=== PATIENT | male | born 1985 | race African-American/Black ===

== ENCOUNTER 2018-07-30 20:55 | Emergency (ER) | payer MEDICAID, OTHER ==
[~2018-07-30] VITALS: Ht 170.2 cm; Wt 95.3 kg
--- NOTE | 2018-07-30 21:24 | Diagnostic Imaging Report ---
INDICATION: Shortness of breath PA and lateral chest obtained at 8:56 p.m. Heart and mediastinal silhouette are normal in appearance. There are patchy bibasilar infiltrates suspicious for pneumonia. There is no pneumothorax or pleural fluid. IMPRESSION: Patchy bibasilar infiltrates are present which are suspicious for pneumonia. Followup is recommended. Dictated by: Dictated on workstation # [id number]
[2018-07-30] MEDS ORDERED: KETOROLAC 60 MG/2 ML VIAL IM ONE (21:30)
[2018-07-30] MEDS ORDERED: AZITHROMYCIN 250 MG TAB (ZITHROMAX) PO STA (22:39)
[2018-07-30] MEDS ORDERED: AZIT250T12 PO (22:44)
[2018-07-30] MEDS ORDERED: IBUP-1780 PO (22:44)
--- NOTE | 2018-07-30 22:44 | ED Cough/URI ---
General Chief Complaint: Chest Wall Stated Complaint: SOB, RIB PAIN Nursing Triage Note: Patient states that he has pain in his chest that worsens with deep breathing. He describes the pain as cramping in nature around his sternum with radiation to his bilateral ribs/sides. Patient states that he did help a friend move today and then walked around town. Patient states he is short of breath because when he breathes normally, his chest hurts. Patient rates his pain at a 9. Sepsis Screen: No Definite Risk Source: patient History of Present Illness Date Seen by Provider: July 30, 2018 Time Seen by Provider: 22:21 Initial Comments 32 yo M presenting with cough and chest tightness that started tonight. He has had congestion with cough. he reports no fever or chills. He is a tobacco user. He states that he has been having some congestion since coming down to [facility]. He had been trying some Claritin to help with that. He had helped a friend move today and was walking around town some as well. Since then he has been having a tightness and cramping pain in his chest when he coughs or tries to take a deep breath. When he takes a deep breath it feels worse. Also if he tries to take a deep breath the feels more short of breath. He was feeling dizzy initially at home as well. He feels better now sitting emergency department. He states that he did not really want to come to the emergency department but his family and friends talked him into coming. Timing/Duration: this evening Severity/Quality: dry cough Prior Episodes/Possible Cause: no prior episodes Modifying Factors: Worse With Activity, Worse With Coughing Associated Symptoms: chest pain/soreness, cough, dizziness (just before coming to ED but better since getting here), nasal congestion, nasal drainage, shortness of breath Allergies and Home Medications Allergies Coded Allergies: aripiprazole (Verified Allergy, Unknown, 07/30/18) Home Medications Azithromycin 250 Mg Tablet, 250 MG PO DAILY Prescribed by: YAYA NEWELL on 07/30/182243 Ibuprofen 800 Mg Tablet, 800 MG PO Q8H PRN for PAIN Prescribed by: YAYA NEWELL on 07/30/182243 Patient Home Medication List Home Medication List Reviewed: Yes Review of Systems Review of Systems Constitutional: see HPI; No chills, No fever; malaise EENTM: see HPI Respiratory: see HPI Cardiovascular: see HPI Gastrointestinal: no symptoms reported; No nausea, No vomiting Genitourinary: no symptoms reported Musculoskeletal: no symptoms reported Skin: no symptoms reported Psychiatric/Neurological: No Symptoms Reported Past Sbyjmlm-Flmahm-Sgqimh Hx Past Med/Social Hx: Reviewed Nursing Past Med/Soc Hx Patient Social History Alcohol Use: Denies Use Recreational Drug Use: No Smoking Status: Current Everyday Smoker Type Used: Cigarettes 2nd Hand Smoke Exposure: Yes Recent Foreign Travel: No Contact w/Someone Who Travel: No Recent Infectious Disease Expo: No Recent Hopitalizations: No Physical Abuse: No Sexual Abuse: No Mistreated: No Fear: No Seasonal Allergies Seasonal Allergies: No Past Medical History Surgeries: Yes (Tongue Clipped) Orthopedic, Tonsillectomy Respiratory: No Cardiac: No Neurological: No Genitourinary: No Gastrointestinal: No Musculoskeletal: No Endocrine: No HEENT: No Cancer: No Psychosocial: Yes (Schizoaffective Disorder) Bipolar Blood Disorders: No Physical Exam Vital Signs - First Documented 07/30/18 21:00 Temp 98.4 Pulse 118 Resp 24 B/P (MAP) 119/84 (96) Pulse Ox 97 O2 Delivery Room Air Capillary Refill : Less Than 3 Seconds Height: 5'7.00" Weight: 210lbs. 0oz. 95.178000cd; BMI Method:Stated General Appearance: WD/WN, no apparent distress HEENT: PERRL/EOMI, pharynx normal; No photophobia, No pharyngeal erythema, No tonsillar exudate Neck: non-tender, full range of motion, supple, normal inspection Respiratory: no respiratory distress, no accessory muscle use, decreased breath sounds (in bilateral bases); No crackles, No rales, No rhonchi, No stridor, No wheezing; other (tender to palpation of the lower chest and ribs) Cardiovascular: normal peripheral pulses, regular rate, rhythm, no edema; No JVD Extremities: normal range of motion, non-tender, no calf tenderness Neurologic/Psychiatric: alert, normal mood/affect, oriented x 3 Skin: normal color, warm/dry Progress/Results/Core Measures Suspected Sepsis Recent Fever Within 48 Hours: No Infection Criteria Present: None New/Unexplained Altered Menta: No Sepsis Screen: No Definite Risk SIRS Temperature:98.4 Pulse: 118 Respiratory Rate: 24 Blood Pressure 119 /84 Mean: 96 Results/Orders My Orders Orders - YAYA NEWELL MD Cxr 2v With Apical Lordotic (07/30/18 21:09) Ketorolac Injection (Toradol Injection) (07/30/18 21:30) Azithromycin Tablet (Zithromax Tablet) (07/30/18 22:39) Guaifenesin Tablet (Mucinex Tablet) (07/30/18 22:45) Medications Given in ED Current Medications Medications Dose Ordered Sig/Swathi Route Start Time Stop Time Status Last Admin Dose Admin Ketorolac Tromethamine 60 mg ONCE ONCE IM 07/30/18 21:30 07/30/18 21:31 DC 07/30/18 21:29 60 MG Vital Signs/I&O 07/30/18 07/30/18 21:00 22:48 Temp 98.4 100.0 Pulse 118 97 Resp 24 19 B/P (MAP) 119/84 (96) 137/85 (102) Pulse Ox 97 96 O2 Delivery Room Air Room Air Capillary Refill : Less Than 3 Seconds Blood Pressure Mean: 96 Progress Note #1: Progress Note Obtain CXR and try a Toradol shot for pain while I was completing a procedure on another patient. Progress Note #2: Progress Note Pt reports the Toradol shot had not helped that much. The CXR was read out by Radiology as having bilateral basilar infiltrates. Will treat for early infection, especially with him being a smoker and more prone to infection due to this. Encouraged and counseled to quit smoking. Start on Zithromax here and advised to increase fluid intake and use Mucinex to help with cough and congestion. Ibuprofen to help with pain Diagnostic Imaging Diagonstic Imaging: Xray Plain Films/CT/US/NM/MRI: chest Comments NAME: MICHAEL BRAY [facility] REC#: [id number] PT STATUS: REG ER : 1985 PHYSICIAN: YAYA NEWELL MD ADMIT DATE: 07/30/18/ER FS Signed Date of Exam:07/30/18 CXR 2V WITH APICAL LORDOTIC INDICATION: Shortness of breath PA and lateral chest obtained at 8:56 p.m. Heart and mediastinal silhouette are normal in appearance. There are patchy bibasilar infiltrates suspicious for pneumonia. There is no pneumothorax or pleural fluid. IMPRESSION: Patchy bibasilar infiltrates are present which are suspicious for pneumonia. Followup is recommended. Dictated by: Dictated on workstation # [id number] Dict: 07/30/[id number] Trans: 07/30/182223 [place] [id number] Interpreted by: THEO ARMANDO MD Electronically signed by: THEO ARMANDO MD 07/30/182223 Reviewed: Reviewed by Me (and radiologist reading) Departure Impression Primary Impression: Upper respiratory infection with cough and congestion Additional Impression: Chest wall muscle strain Qualified Codes: S29.011A - Strain of muscle and tendon of front wall of thorax, initial encounter Disposition: HOME, SELF-CARE Condition: Stable Departure-Patient Inst. Decision time for Depature: 22:42 Referrals: NO,LOCAL PHYSICIAN (PCP) Primary Care Physician Patient Instructions: SMOKING CESSATION, Muscle Strain (DC), Bacterial Upper Respiratory Infection, Adult (DC) Add. Discharge Instructions: Stop smoking. Take antibiotics until they are gone. Check with clinic for continued problems/concerns. Use Mucinex to help with cough and congestion. Make sure to drink plenty of water along with that so it will work to thin out any congestion and phlegm All discharge instructions reviewed with patient and/or family. Voiced understanding. Scripts Ibuprofen (Ibuprofen) 800 Mg Tablet 800 MG PO Q8H PRN for PAIN for 10 Days, #30 TAB 0 Refills Prov: YAYA NEWELL MD 07/30/18 Azithromycin (Azithromycin) 250 Mg Tablet 250 MG PO DAILY for 4 Days, #4 TAB 0 Refills Prov: YAYA NEWELL MD 07/30/18 YAYA NEWELL MD July 30, 2018 22:44
[2018-07-30] MEDS ORDERED: guaiFENesin (MUCINEX) 600 MG TAB PO ONE (22:45)
[2018-07-30 22:48] VITALS: BP 137/85
== END 2018-07-30 22:48 | disposition home or self-care (01) ==
LOC: ER FS 20:57
DX: S29.011A Strain of muscle and tendon of front wall of thorax, initial encounter (principal); J06.9 Acute upper respiratory infection, unspecified; F20.9 Schizophrenia, unspecified; F31.9 Bipolar disorder, unspecified; F17.210 Nicotine dependence, cigarettes, uncomplicated; Z88.8 Allergy status to other drugs, medicaments and biological substances; Z90.89 Acquired absence of other organs; X58.XXXA Exposure to other specified factors, initial encounter
CPT/HCPCS: 71047; 96372

== ENCOUNTER 2018-08-01 03:07 | Emergency (ER) | payer MEDICAID ==
[~2018-08-01] VITALS: Ht 170.2 cm; Wt 92.5 kg
[~2018-08-01 03:07] MED LIST: AZIT250T12 PO; IBUP-1780 PO
[2018-08-01] MEDS ORDERED: NS IV 1000 ML 1,000 ML IV SCH (03:15)
[2018-08-01] MEDS ORDERED: DEXAMETHASONE 4 MG/ML SDV (DECADRON) IV STA (03:15)
[2018-08-01] MEDS ORDERED: LORazepam INJ 2 MG/ML (ATIVAN) VIAL IVP STA (03:20)
--- NOTE | 2018-08-01 03:30 | ED Dyspnea ---
General Stated Complaint: CHEST PAIN Source of Information: Patient Exam Limitations: No Limitations History of Present Illness Date Seen by Provider: August 01, 2018 Time Seen by Provider: 03:08 Initial Comments 32 yo male patient presents yet again to the emergency department with similar complaints as yesterday. He was seen by me last night for the same thing. He states that he did not go throughout the day to fill any prescriptions because he didn't have any money. He also did not go to [facility] or any clinic to try and get help with filling any prescriptions. He reports that he felt fine throughout the day but overnight had the pain return. His family made him come to the emergency department to be reevaluated. He has pleuritic pain with breathing. He denies any able to bring up anything with coughing. His pain is worse with deep breaths and with coughing. He has not taking anything tonight for his symptoms. He denies any change in the symptoms tonight. They feel the same as yesterday. Allergies and Home Medications Allergies Coded Allergies: aripiprazole (Verified Allergy, Unknown, 07/30/18) Home Medications Azithromycin 250 Mg Tablet, 250 MG PO DAILY Prescribed by: YAYA NEWELL on 07/30/182243 Ibuprofen 800 Mg Tablet, 800 MG PO Q8H PRN for PAIN Prescribed by: YAYA NEWELL on 07/30/182243 Patient Home Medication List Home Medication List Reviewed: Yes Review of Systems Review of Systems Constitutional: No chills, No fever; malaise EENTM: nose congestion (yesterday); No throat pain, No throat swelling Respiratory: cough, dyspnea on exertion (in the evenings last 2 days); No hemoptysis, No phlegm; short of breath; No stridor Cardiovascular: chest pain (with deep breaths) Gastrointestinal: no symptoms reported Genitourinary: no symptoms reported Musculoskeletal: no symptoms reported Skin: no symptoms reported Psychiatric/Neurological: Anxiety Endocrine: No Symptoms Reported Past Wxfjvym-Jsllvu-Rzzkyv Hx Past Med/Social Hx: Reviewed Nursing Past Med/Soc Hx Patient Social History Type Used: Cigarettes 2nd Hand Smoke Exposure: Yes Recent Foreign Travel: No Contact w/Someone Who Travel: No Recent Hopitalizations: No Seasonal Allergies Seasonal Allergies: No Past Medical History Surgeries: Yes (Tongue Clipped) Orthopedic, Tonsillectomy Respiratory: No Cardiac: No Neurological: No Genitourinary: No Gastrointestinal: No Musculoskeletal: No Endocrine: No HEENT: No Cancer: No Psychosocial: Yes (Schizoaffective Disorder) Bipolar Blood Disorders: No Physical Exam Vital Signs Vital Signs - First Documented Capillary Refill : Height, Weight, BMI Height: 5'7.00" Weight: 210lbs. 0oz. 95.741674xo; BMI Method:Stated General Appearance: WD/WN, Anxious HEENT: PERRL/EOMI, Pharynx Normal Neck: Full Range of Motion, Normal Inspection, Non Tender, Supple Respiratory: Chest Non Tender, Lungs Clear, Normal Breath Sounds, No Accessory Muscle Use, No Respiratory Distress Cardiovascular: Regular Rate, Rhythm, No Edema, Normal Peripheral Pulses Gastrointestinal: Normal Bowel Sounds, No Pulsatile Mass, Non Tender, Soft Rectal: Deferred Extremity: Normal Capillary Refill, Normal Inspection, Normal Range of Motion, Non Tender, No Calf Tenderness Neurologic/Psychiatric: Alert, Oriented x3 Skin: Normal Color, Warm/Dry Progress/Results/Core Measures Results/Orders Lab Results Laboratory Tests Test 08/01/18 03:21 Range/Units White Blood Count 8.1 4.3-11.0 10^3/uL Red Blood Count 4.99 4.35-5.85 10^6/uL Hemoglobin 14.6 13.3-17.7 G/DL Hematocrit 43 40-54 % Mean Corpuscular Volume 86 80-99 FL Mean Corpuscular Hemoglobin 29 25-34 PG Mean Corpuscular Hemoglobin Concent 34 32-36 G/DL Red Cell Distribution Width 13.5 10.0-14.5 % Platelet Count 202 130-400 10^3/uL Mean Platelet Volume 9.3 7.4-10.4 FL Neutrophils (%) (Auto) 59 42-75 % Lymphocytes (%) (Auto) 31 12-44 % Monocytes (%) (Auto) 7 0-12 % Eosinophils (%) (Auto) 2 0-10 % Basophils (%) (Auto) 0 0-10 % Neutrophils # (Auto) 4.8 1.8-7.8 X 10^3 Lymphocytes # (Auto) 2.5 1.0-4.0 X 10^3 Monocytes # (Auto) 0.6 0.0-1.0 X 10^3 Eosinophils # (Auto) 0.2 0.0-0.3 10^3/uL Basophils # (Auto) 0.0 0.0-0.1 10^3/uL Prothrombin Time 13.9 12.2-14.7 SEC INR Comment 1.0 0.8-1.4 Activated Partial Thromboplast Time 24 24-35 SEC Sodium Level 138 135-145 MMOL/L Potassium Level 3.7 3.6-5.0 MMOL/L Chloride Level 99 98-107 MMOL/L Carbon Dioxide Level 20 L 21-32 MMOL/L Anion Gap 19 H 5-14 MMOL/L Blood Urea Nitrogen 11 7-18 MG/DL Creatinine 1.09 0.60-1.30 MG/DL Estimat Glomerular Filtration Rate > 60 BUN/Creatinine Ratio 10 Glucose Level 142 H 70-105 MG/DL Calcium Level 9.1 8.5-10.1 MG/DL Corrected Calcium 9.0 8.5-10.1 MG/DL Total Bilirubin 0.6 0.1-1.0 MG/DL Aspartate Amino Transf (AST/SGOT) 27 5-34 U/L Alanine Aminotransferase (ALT/SGPT) 33 0-55 U/L Alkaline Phosphatase 62 40-136 U/L Troponin T < 15 <=15 NG/L Pro-B-Type Natriuretic Peptide 36.7 <75.0 PG/ML Total Protein 7.3 6.4-8.2 GM/DL Albumin 4.1 3.2-4.5 GM/DL My Orders Orders - YAYA NEWELL MD Cbc With Automated Diff (08/01/18 03:15) Comprehensive Metabolic Panel (08/01/18 03:15) Ekg Tracing (08/01/18 03:15) O2 (08/01/18 03:15) Ed Iv/Invasive Line Start (08/01/18 03:15) Monitor-Rhythm Ecg Trace Only (08/01/18 03:15) Ct Angio Chest W (08/01/18 03:15) Troponin T (08/01/18 03:15) Probnp Fs (08/01/18 03:15) Dexamethasone Injection (Decadron Inject (08/01/18 03:15) Ns Iv 1000 Ml (Sodium Chloride 0.9%) (08/01/18 03:15) Protime With Inr (08/01/18 03:15) Partial Thromboplastin Time (08/01/18 03:15) Lorazepam Injection (Ativan Injection) (08/01/18 03:20) Iohexol Injection (Omnipaque 350 Mg/Ml 1 (08/01/18 03:45) Received Contrast (Hold Metformin- Contr (08/01/18 03:45) Ns (Ivpb) (Sodium Chloride 0.9% Ivpb Bag (08/01/18 03:45) Sodium Chloride Flush (Catheter Flush Sy (08/01/18 03:45) Enoxaparin Injection (Lovenox Injection) (08/01/18 05:24) Medications Given in ED Current Medications Medications Dose Ordered Sig/Swathi Route Start Time Stop Time Status Last Admin Dose Admin Iohexol 100 ml ONCE ONCE IV 08/01/18 03:45 08/01/18 04:24 DC 08/01/18 03:45 100 ML Sodium Chloride 10 ml NEEDED PRN IV 08/01/18 03:45 08/01/18 03:46 10 ML Sodium Chloride 100 ml ONCE ONCE IV 08/01/18 03:45 08/01/18 04:24 DC 08/01/18 03:45 40 ML Vital Signs/I&O 08/01/18 08/01/18 03:09 03:09 Temp 97.9 Pulse 97 Resp 24 B/P (MAP) 125/80 (95) Pulse Ox 99 O2 Delivery Room Air Room Air Progress Progress Note #1: Time: 03:15 Progress Note Will check labs and CT scan as well as ECG. Pt states that his family insists that he have more testing done so will evaluate further beyond the CXR yesterday that had shown possible bibasilar infiltrates starting for him. with his pleuritic chest pain will check for PE, mass or infiltrate with CT angiography of the chest. Will also try IVF for hydration and a dose of dexamethasone for anti-inflammatory effect. He denied any improvement yesterday with the Duoneb breathing treatment so will not repeat that and his O2 sat is 98 -100%. ECG shows mild less than [address] segments for possible pericarditis. However his symptoms are not consistent with that. Will see what his labs and CT chest show and how he responds to steroid and IVF. Progress Note #2: Time: 04:38 Progress Note Labs are all within normal limits. He has no elevation of his troponin T or BNP. His symptoms were slightly improved after treatment in the ED. His heart rate has improved with treatment. The radiologist did call with the report from [facility] and his CT scan does show he has small pulmonary emboli that are bilateral and present in upper and lower lobes. These are present and segmental pulmonary arteries. He does have a small amount of bilateral peripheral atelectasis versus pulmonary infarct. He has no mass or consolidation. There is no cardiomegaly and no significant pericardial effusion. He has no evidence of right ventricular dysfunction. These findings were discussed with the patient and his sister. He was advised that he will need to be started on medication for his pulmonary emboli. As he is maintaining his oxygen saturation and hemodynamically stable he really does not fit criteria for admission but as he is stating that he has no in terms or way to get medication will check with the hospitalist about possible observation stay to try and contact him with social work. Progress Note #3: Time: 05:00 Progress Note I spoke with Dr. Voss the on-call hospitalist about the patient. She agreed that he did not meet admission criteria and recommended starting him on a Lovenox shot here and then providing him with a prescription for Eliquis or another anticoagulant and then contacting the [facility] on-call doctor about getting him an emergency appointment for today so that he could be connected with care and provided assistance with continued medication and treatment Progress Note #4: Time: :22 Progress Note I spoke with Dr. Sevilla about the patient. She is on-call for [facility]. She stated that she would take the patient's information and after 7 AM when the scheduling people were available she would pass that on so that they could help get a hold of him to help assist in arranging an appointment. In the meantime he will be covered by the Lovenox and I will send a prescription with him for Eliquis. Hopefully the clinic would have samples or a way to assist him with getting the medicine as the patient reports that he does not have a way to fill any prescription currently. Initial ECG Impression Date: August 01, 2018 Initial ECG Impression Time: 03:22 Initial ECG Rate: 95 Initial ECG Rhythm: Normal Sinus Initial ECG Comparisson: No Previous ECG Available Comment Sinus rhythm with a heart rate of 95 bpm. His NM interval is 158 ms. He has a QT interval of 343 ms and a QT corrected interval of 431 ms. He has some diffuse mild ST elevation of 1 mm or less suggesting possible pericarditis. No prior tracings for comparison are available. Diagnostic Imaging Diagonstic Imaging: CT Plain Films/CT/US/NM/MRI: chest Comments The radiologist did call with the report from [facility] and his CT scan does show he has small pulmonary emboli that are bilateral and present in upper and lower lobes. These are present and segmental pulmonary arteries. He does have a small amount of bilateral peripheral atelectasis versus pulmonary infarct. He has no mass or consolidation. There is no cardiomegaly and no significant pericardial effusion. He has no evidence of right ventricular dysfunction. Radiologist Dr. Heri Porter MD Study read at 0412 and initial results faxed at [phone]. Reviewed: [facility] Impression Primary Impression: Bilateral pulmonary embolism Disposition: HOME, SELF-CARE Condition: Stable Departure-Patient Inst. Decision time for Depature: 05:37 Referrals: NO,LOCAL PHYSICIAN (PCP) Primary Care Physician Patient Instructions: Pulmonary Embolism (Blood Clot in the Lungs) (DC) Add. Discharge Instructions: Follow up with [facility] today for an appointment and to get started on medicine for the blood clots found in your lungs on the testing today. Scripts Apixaban (Eliquis) 5 Mg Tab.ds.pk 5 MG PO BID for pulmonary embolism, #1 PKG Take Starter pack as directed for Pulmonary Embolism. 10 mg (2 tabs) twice a day for 7 days then decrease to 5 mg twice a day Prov: YAYA NEWELL MD 08/01/18 YAYA NEWELL MD August 01, 2018 03:30
[2018-08-01 03:40] LABS: HEMATOCRIT 43 % (40-54); HEMOGLOBIN 14.6 G/DL (13.3-17.7); MEAN CORPUSCULAR HEMOGLOBIN 29 PG (25-34); WHITE BLOOD COUNT 8.1 10^3/uL (4.3-11.0)
[2018-08-01 03:41] LABS: BASOPHILS % (AUTO) 0 % (0-10); EOSINOPHILS # (AUTO) 0.2 10^3/uL (0.0-0.3); EOSINOPHILS % (AUTO) 2 % (0-10); LYMPHOCYTES # (AUTO) 2.5 X 10^3 (1.0-4.0); LYMPHOCYTES % (AUTO) 31 % (12-44); MEAN CORPUSCULAR HGB CONC 34 G/DL (32-36); MEAN CORPUSCULAR VOLUME 86 FL (80-99); MEAN PLATELET VOLUME 9.3 FL (7.4-10.4); MONOCYTES # (AUTO) 0.6 X 10^3 (0.0-1.0); MONOCYTES % (AUTO) 7 % (0-12); NEUTROPHILS # (AUTO) 4.8 X 10^3 (1.8-7.8); NEUTROPHILS % (AUTO) 59 % (42-75); PLATELET COUNT 202 10^3/uL (130-400); RED CELL DISTRIBUTION WIDTH 13.5 % (10.0-14.5)
[2018-08-01] MEDS ORDERED: IOHEXOL 350 MG/ML 100 ML (OMNIPAQUE 350) VIAL IV ONE (03:45)
[2018-08-01] MEDS ORDERED: NS 100 ML (IVPB) BAG IV ONE (03:45)
[2018-08-01] MEDS ORDERED: HOLD METFORMIN - RECEIVED CONTRAST 20 ML VIAL IV SCH (03:45)
[2018-08-01] MEDS: CATHETER FLUSH 10 ML SYR IV PRN ×2 (03:45→03:46)
[2018-08-01 03:49] LABS: PROTHROMBIN TIME PATIENT 13.9 SEC (12.2-14.7)
[2018-08-01 04:15] LABS: ALANINE AMINOTRANSFERASE 33 U/L (0-55); ALBUMIN 4.1 GM/DL (3.2-4.5); ALKALINE PHOSPHATASE 62 U/L (40-136); BILIRUBIN,TOTAL 0.6 MG/DL (0.1-1.0); BUN/CREATININE RATIO 10; CALCIUM 9.1 MG/DL (8.5-10.1); CARBON DIOXIDE 20 MMOL/L (21-32); CHLORIDE 99 MMOL/L (98-107); CREATININE SERUM 1.09 MG/DL (0.60-1.30); GFR ESTIMATED > 60; GLUCOSE 142 MG/DL (70-105); POTASSIUM 3.7 MMOL/L (3.6-5.0); SODIUM 138 MMOL/L (135-145); TOTAL PROTEIN 7.3 GM/DL (6.4-8.2)
[2018-08-01] MEDS ORDERED: ENOXAPARIN 100 MG/1 ML (LOVENOX) SYR SC STA (05:24)
[2018-08-01] MEDS ORDERED: APIX5TAB4 PO (05:43)
[2018-08-01 05:46] VITALS: BP 140/90
--- NOTE | 2018-08-01 07:46 | Diagnostic Imaging Report ---
Clinical indication: Patient with increased shortness of breath and abnormal chest x-ray yesterday. Exam: CT angiogram of the chest performed with 100 cc Omnipaque 350 IV contrast. Coronal and oblique MIP images of the vasculature were created to better evaluate anatomy. Comparison: Chest x-ray dated 07/30/2018. Findings: There are multiple small occlusive and nonocclusive pulmonary emboli involving the bilateral lower lobe pulmonary segments and bilateral upper lobe pulmonary artery segments. There is no evidence of right heart strain noted. There is no thoracic aortic dissection or aneurysm. There are patchy areas of groundglass opacification involving the periphery of the anterior aspect of left upper lobe and patchy areas of consolidation involving the lateral and posterior right lung base and posterior left lung base. These findings may related to consolidation related to the pulmonary emboli. Components of intraparenchymal hemorrhage may also be considered. There is no pleural effusion. Pulmonary bronchi are unremarkable. Several subcentimeter in short axis, lymph nodes are seen in the mediastinum and bilateral axillary region. The extra thoracic soft tissue structures are unremarkable. There is diffuse low-attenuation changes seen throughout the liver, likely related to fatty infiltration. Small hiatal hernia seen. The remainder of the visualized upper abdominal regions are unremarkable. Bones show no significant abnormality. Impression: 1: There are occlusive and nonocclusive pulmonary emboli involving the upper and lower bilateral pulmonary arteries. 2: There is groundglass and patchy areas of consolidation involving both lungs. These findings may be related to pulmonary emboli and component of pulmonary hemorrhage may be considered. 3: Diffuse fatty infiltration of the liver. I agree with [facility] report. Dictated by: Dictated on workstation # [id number]
== END 2018-08-01 05:46 | disposition home or self-care (01) ==
LOC: EDUNIT# 03:07 → ER FS 03:08
DX: I26.99 Other pulmonary embolism without acute cor pulmonale (principal); F31.9 Bipolar disorder, unspecified; F25.9 Schizoaffective disorder, unspecified; Z88.8 Allergy status to other drugs, medicaments and biological substances; Z77.22 Contact with and (suspected) exposure to environmental tobacco smoke (acute) (chronic); Z90.89 Acquired absence of other organs; Z98.890 Other specified postprocedural states
CPT/HCPCS: 36415; 71275; 80053; 83880; 84484; 85025; 85610; 85730; 93005; 93041

== ENCOUNTER 2018-12-07 15:49 | Emergency (ER) | payer SELFPAY, MEDICAID | END 2018-12-07 17:22 | disposition home or self-care (01) | LOC: ER FS 15:49 ==

== ENCOUNTER → 2020-04-20 | Outpatient (CLI) | payer SELFPAY ==
[~2020-04-20] MED LIST changes: +APIX5TAB4 PO
--- NOTE | 2020-04-20 12:04 | Diagnostic Imaging Report ---
PROCEDURE: CT abdomen and pelvis without contrast. TECHNIQUE: Multiple contiguous axial images were obtained through the abdomen and pelvis without the use of intravenous contrast. Auto Exposure Controls were utilized during the CT exam to meet ALARA standards for radiation dose reduction. INDICATION: Lower abdominal pain. COMPARISON: No relevant comparison. FINDINGS: There are no radiopaque urinary tract calculi. There is no hydroureteronephrosis. The appendix appears nonacute. There is no evidence for bowel, biliary, or urinary tract obstruction. No ascites, abscess, hematoma, or acute fluid collection. No perienteric or pericolonic edema. No inflammatory process. No pneumatosis or free air. No aneurysm, adenopathy, or mass. No acute bony pathology. The lung bases appear nonacute. IMPRESSION: Unremarkable noncontrasted CT abdomen/pelvis. Dictated by: Dictated on workstation # [id number]
== END ==
LOC: RAD FS 11:00
PROVIDERS: ATTEND Family Medicine
DX: R10.30 Lower abdominal pain, unspecified (principal)
CPT/HCPCS: 74176

== ENCOUNTER → 2020-06-25 | Outpatient (CLI) | payer SELFPAY ==
--- NOTE | 2020-06-25 13:22 | Diagnostic Imaging Report ---
REASON FOR EXAM: Hematuria. Pain. COMPARISON: 04/20/2020. TECHNIQUE: frontal supine view of the abdomen FINDINGS: The bowel gas pattern is nondistended. No large collection of free intraperitoneal air is seen. Scattered small amounts of gas and fecal material are present in the colon. No abnormal extraosseous calcifications are present. The osseous structures are age-appropriate. IMPRESSION: No evidence of bowel obstruction or large collection of free intraperitoneal air. Dictated by: Dictated on workstation # [id number]
== END ==
LOC: RAD FS 11:12
PROVIDERS: ATTEND Urology
DX: R31.9 Hematuria, unspecified (principal)
CPT/HCPCS: 74018

== ENCOUNTER 2021-03-18 19:25 | Emergency (ER) | payer BC ==
--- NOTE | 2021-03-18 19:39 | ED General ---
General Chief Complaint: Fever-Adult/Adol Stated Complaint: FEVER,VOMITTING Source of Information: Patient Exam Limitations: No Limitations History of Present Illness Date Seen by Provider: Mar 18, 2021 Time Seen by Provider: 19:28 Initial Comments 35yoM otherwise healthy coming in due to hot/cold flashes. Has been going on for 1 day and started last night. Took over the counter flu medicine which helped some. Has had some nb/nb vomiting and nb diarrhea as well. Vomiting has improved but diarrhea is newer. No cough, abd pain, dysuria, rash, SOB, or any other concerns. Is tolerating PO. Allergies and Home Medications Allergies Coded Allergies: aripiprazole (Verified Allergy, Unknown, 07/30/18) Patient Home Medication List Home Medication List Reviewed: Yes Apixaban (Eliquis) 5 Mg Tab.ds.pk, 5 MG PO BID Prescribed by: YAYA NEWELL on 08/01/18 0543 Ondansetron (Ondansetron Odt) 4 Mg Tab.rapdis, 4 MG PO Q6H PRN for NAUSEA/VOMITING-1ST LINE Prescribed by: KALE MIN on 03/18/211952 Review of Systems Review of Systems Constitutional: chills EENTM: No nose congestion, No throat pain Respiratory: No cough, No short of breath Cardiovascular: No chest pain Gastrointestinal: No abdominal pain, No diarrhea, No vomiting Genitourinary: No dysuria Musculoskeletal: no symptoms reported Skin: No rash Psychiatric/Neurological: No Symptoms Reported Hematologic/Lymphatic: No Symptoms Reported Immunological/Allergic: no symptoms reported All Other Systems Reviewed Negative Unless Noted: Yes Past Yiaqarh-Oghtks-Hhsbch Hx Patient Social History Substance use?: No Seasonal Allergies Seasonal Allergies: No Past Medical History Surgeries: Yes (Tongue Clipped) Orthopedic, Tonsillectomy Respiratory: Yes Pulmonary Embolism Cardiac: No Neurological: No Genitourinary: No Gastrointestinal: No Musculoskeletal: No Endocrine: No HEENT: No Cancer: No Psychosocial: Yes (Schizoaffective Disorder) Bipolar Integumentary: No Blood Disorders: No Physical Exam Vital Signs Vital Signs - First Documented 03/18/21 19:27 Temp 37.0 Pulse 96 Resp 16 B/P (MAP) 128/79 (95) Pulse Ox 99 O2 Delivery Room Air Capillary Refill : Height, Weight, BMI Height: 5'7.00" Weight: 204lbs. 0oz. 92.497342uc; 28.00 BMI Method:Actual General Appearance: No Apparent Distress, WD/WN Eyes: Bilateral Eye Normal Inspection HEENT: PERRL/EOMI, Normal ENT Inspection, Pharynx Normal Neck: Full Range of Motion, Normal Inspection, Non Tender, Supple Respiratory: Chest Non Tender, Lungs Clear, Normal Breath Sounds, No Accessory Muscle Use, No Respiratory Distress Cardiovascular: Regular Rate, Rhythm, No Edema, Normal Peripheral Pulses Gastrointestinal: Normal Bowel Sounds, Non Tender, Soft; No Distended, No Guarding Back: Normal Inspection, No CVA Tenderness, No Vertebral Tenderness Extremity: Normal Capillary Refill, Normal Inspection, Normal Range of Motion, Non Tender, No Calf Tenderness, No Pedal Edema Neurologic/Psychiatric: Alert, No Motor/Sensory Deficits, Normal Mood/Affect Skin: Normal Color, Warm/Dry Lymphatic: No Adenopathy Progress/Results/Core Measures Suspected Sepsis SIRS Temperature: Pulse: Respiratory Rate: Blood Pressure / Mean: Results/Orders Lab Results Laboratory Tests Test 03/18/21 19:33 Range/Units Influenza Type A Antigen NEGATIVE NEGATIVE Influenza Type B Antigen POSITIVE H NEGATIVE My Orders Orders - KALE MIN MD Covid 19 Inhouse Test (03/18/21 19:47) Influenza A & B Antigens (03/18/21 19:47) Vital Signs/I&O 03/18/21 19:27 Temp 37.0 Pulse 96 Resp 16 B/P (MAP) 128/79 (95) Pulse Ox 99 O2 Delivery Room Air Capillary Refill : Progress Note : Progress Note Well-appearing 35-year-old male with above history coming in due to subjective fever, nausea, diarrhea. ABCs were intact and vitals were stable on presentation. Physical exam reassuring including a soft and nontender abdomen. He appears well-hydrated, and is intact rapidly drinking multiple cups of water when I walked into his room. Offered Zofran for nausea, but says that is better and does not currently want any. We did a flu and COVID test which are pending. Overall though, he is well-appearing, and I believe he is stable for outpatient follow-up. He was discharged home in stable condition. Departure Impression Primary Impression: Influenza B Disposition: HOME, SELF-CARE Condition: Stable Departure-Patient Inst. Decision time for Depature: 20:05 Referrals: SELF,ROM MD (PCP/Family) Primary Care Physician Patient Instructions: Flu Add. Discharge Instructions: With your fever, vomiting, diarrhea, and you have influenza B. Drink plenty of fluids at home. I have sent in some nausea meds to your pharmacy if you need. Take 1000 mg of Tylenol every 6 hours and 16 mg of ibuprofen every 6 hours as needed for your hot and cold symptoms. Scripts Ondansetron (Ondansetron Odt) 4 Mg Tab.rapdis 4 MG PO Q6H PRN for NAUSEA/VOMITING-1ST LINE for 5 Days, #20 TAB Prov: KALE MIN MD 03/18/21 Work/School Note: Work Release Form Date Seen in the Emergency Department: Mar 18, 2021 Return to Work: Mar 21, 2021 Restrictions: Return-No Fever (24hrs) KALE MIN MD Mar 18, 2021 19:39
[2021-03-18] MEDS ORDERED: ONDA4TAB11 PO (19:53)
[2021-03-18 19:58] VITALS: BP 128/79
== END 2021-03-18 20:01 | disposition home or self-care (01) ==
LOC: EDUNIT# 19:25 → ER FS 19:26
DX: J10.1 Influenza due to other identified influenza virus with other respiratory manifestations (principal); F25.9 Schizoaffective disorder, unspecified; Z86.711 Personal history of pulmonary embolism; Z79.01 Long term (current) use of anticoagulants
CPT/HCPCS: 87636; 87804; 99283

== ENCOUNTER 2022-04-19 22:19 | Emergency (ER) | payer SELFPAY ==
[~2022-04-19] VITALS: Ht 170.2 cm; Wt 81.2 kg
[~2022-04-19 22:19] MED LIST changes: +ONDA4TAB11 PO
--- NOTE | 2022-04-19 22:35 | ED Lower Extremity ---
General Chief Complaint: Lower Extremity Stated Complaint: RIGHT LEG PAIN Nursing Triage Note: PT AMB TO ED BY POV WITH C/O "SHOOTING" LEG PAIN FROM R FOOT INTO LOWER LEG X 4 DAYS. DENIES INJURY. REPORTS PAIN SIMILAR TO THIS LAST YEAR THAT WASN'T BAD IT IS CURRENTLY, PAIN RESOLVED ON ITS OWN. PT HAS BEEN TAKING TYLENOL AND IBUPROFEN WITH NO RELIEF. Source: patient Exam Limitations: no limitations History of Present Illness Date Seen by Provider: Apr 19, 2022 Time Seen by Provider: 10:25 Initial Comments Here with complaint of right foot pain that is been going on for the last 4 days. Denies swelling. States pain emanates from the first and second MTP area and radiates up the foot to the lower leg. Denies any recent injury. Does admit to drinking beer. Had a similar problem last year that resolved after several days while taking Tylenol and ibuprofen. Does not know if he has gout previously. Does have history of pulmonary embolism 4 years ago but has not had any problems since then. Denies swelling in his calves or tenderness in his calves. Onset: other (4 days ago) Severity: moderate Pain/Injury Location: right foot Method of Injury: unknown Associated Symptoms: Pain worse with standing and better with rest Allergies and Home Medications Allergies Coded Allergies: aripiprazole (Verified Allergy, Unknown, 07/30/18) Patient Home Medication List Home Medication List Reviewed: Yes Apixaban (Eliquis) 5 Mg Tab.ds.pk, 5 MG PO BID Prescribed by: YAYA NEWELL on 08/01/18 0543 Ondansetron (Ondansetron Odt) 4 Mg Tab.rapdis, 4 MG PO Q6H PRN for NAUSEA/VOMITING-1ST LINE Prescribed by: KALE MIN on 03/18/211952 Review of Systems Constitutional: see HPI; No chills, No fever Respiratory: no symptoms reported; No cough, No short of breath Musculoskeletal: joint pain, muscle pain Skin: No change in color, No lesions Psychiatric/Neurological: Denies Numbness, Denies Tingling Past Sddghdx-Whdlbo-Cqkfqh Hx Patient Social History Tobacco Use?: Yes Tobacco type used: Cigarettes Smoking Status: Current Everyday Smoker Use of E-Cig and/or Vaping dev: No Substance use?: Yes Substance type: Marijuana Substance frequency: Once in a while Alcohol Use?: Yes Alcohol type: Beer Alcohol Frequency: Daily Pt feels they are or have been: No Immunizations Up To Date Influenza Vaccine Up-to-Date: No; Not Current Seasonal Allergies Seasonal Allergies: No Past Medical History Surgery/Hospitalization HX: DENIES Surgeries: Yes (Tongue Clipped) Orthopedic, Tonsillectomy Respiratory: Yes Pulmonary Embolism Cardiac: No Neurological: No Genitourinary: No Gastrointestinal: No Musculoskeletal: No Endocrine: No HEENT: No Cancer: No Psychosocial: Yes (Schizoaffective Disorder) Bipolar Integumentary: No Blood Disorders: No Family Medical History Reviewed Nursing Family Hx Physical Exam Vital Signs Vital Signs - First Documented 04/19/22 22:25 Temp 37.0 Pulse 105 Resp 18 B/P (MAP) 145/95 (112) Pulse Ox 100 O2 Delivery Room Air Capillary Refill : Less Than 3 Seconds Height, Weight, BMI Height: 5'7.00" Weight: 204lbs. 0oz. 92.783466wh; 28.00 BMI Method:Actual General Appearance: WD/WN, no apparent distress Cardiovascular: regular rate, rhythm, no murmur Respiratory: lungs clear, normal breath sounds Feet: right foot other (Pain to the first and second MTP especially on the plantar surface. No significant swelling noted to ankle or calf. Nontender of the right calf. Left and right calf are both equal without swelling.) Neurologic/Psychiatric: alert, oriented x 3 Skin: normal color, warm/dry Progress/Results/Core Measures Results/Orders My Orders Orders - ALENA IBARRA MD Colchicine Tablet (Colcrys Tablet) (04/19/22 22:45) Colchicine Tablet (Colcrys Tablet) (04/19/22 22:45) Ketorolac Injection (Toradol Injection) (04/19/22 22:45) Foot, Right, 3 View (04/19/22 22:32) Hydrocodone/Apap 5/325 Tablet (Lortab 5 (04/19/22 22:45) Medications Given in ED Current Medications Medications Dose Ordered Sig/Swathi Route Start Time Stop Time Status Last Admin Dose Admin Acetaminophen/ Hydrocodone Bitart 1 ea ONCE ONCE PO 04/19/22 22:45 04/19/22 22:46 DC 04/19/22 22:40 1 EA Colchicine 1.2 mg ONCE ONCE PO 04/19/22 22:45 04/19/22 22:46 DC 04/19/22 22:53 1.2 MG Ketorolac Tromethamine 60 mg ONCE ONCE IM 04/19/22 22:45 04/19/22 22:46 DC 04/19/22 22:41 60 MG Vital Signs/I&O 04/19/22 22:25 Temp 37.0 Pulse 105 Resp 18 B/P (MAP) 145/95 (112) Pulse Ox 100 O2 Delivery Room Air Blood Pressure Mean: 112 Progress Progress Note : Progress Note Seen and evaluated. We will get x-ray of the right foot. Colchicine 1.2 mg p.o. now and repeat 0.6 mg in 1 hour. Hydrocodone 5/325 1 tab p.o. now. Toradol 60 mg IM ordered. Monitor patient. Differential includes gout, occult fracture, foot strain, Planter fasciitis. 2241: Foot x-ray reviewed by me. No acute fracture on my interpretation. Monitor patient. 0005: Patient is doing much better. We did discuss at length different possible causes for his pain including gout, Planter fasciitis and a much lesser possibility, blood clot of the leg. He is without calf pain or swelling and pain seems to emanate really only around the joint so I do not believe that blood clot is a concern. Patient agrees. Given that his pain is improved after treatment for gout, I do believe this is more likely the cause. I did discuss this with the patient. We will initiate outpatient steroid and he will continue ibuprofen and Tylenol as discussed. Due to [employer] downtime, written instructions were given and are recreated in this note afterwards. Discharged home with return precautions. Patient verbalized understanding of instructions and agreement with plan. Departure Impression Primary Impression: Gout Qualified Codes: M10.9 - Gout, unspecified Disposition: HOME, SELF-CARE Condition: Improved Departure-Patient Inst. Decision time for Depature: 00:05 Referrals: [facility] (PCP/Family) Primary Care Physician Patient Instructions: Gout ED Add. Discharge Instructions: All discharge instructions reviewed with patient and/or family. Voiced understanding. You may take ibuprofen 600 mg every 8 hours as needed for pain. You may also take Tylenol/acetaminophen 1000 mg every 8 hours as needed for pain. Take other medications as directed. Follow-up with [facility] for recheck and further evaluation. Return for swelling of the leg, weakness, breathing problems, worse pain or other concerns as needed. Scripts Prednisone (Prednisone) 20 Mg Tab 40 MG PO DAILY, #6 TAB 0 Refills Prov: ALENA IBARRA MD 04/20/22 ALENA IBARRA MD Apr 19, 2022 22:35
[2022-04-19] MEDS ORDERED: HYDROcodone/APAP 5 MG/325 MG (LORTAB) TAB PO ONE (22:45)
[2022-04-19] MEDS ORDERED: KETOROLAC 60 MG/2 ML VIAL IM ONE (22:45)
[2022-04-19] MEDS ORDERED: COLCHICINE 0.6 MG (COLCRYS) TABLET PO ONE ×2 (22:45)
[2022-04-20 00:06] VITALS: BP 145/95
[2022-04-20] MEDS ORDERED: PRD20T PO (00:58)
--- NOTE | 2022-04-20 08:09 | Diagnostic Imaging Report ---
CLINICAL INDICATION: Patient with complaints of pain in the right foot x4 days. Onset after working in [employer] EXAM: X-ray of the right foot, 3 views. FINDINGS: There is no acute fracture or dislocation. Subtle valgus positioning of the 1st MTP joint. Hypertrophic calcaneal spur at the plantar attachment is seen. There is no significant soft tissue abnormality. There is no soft tissue air or radiodense foreign object. IMPRESSION: 1: There is no evidence of acute fracture or dislocation. There is no evidence of acute abnormality seen on this exam. Dictated by: Dictated on workstation # [id number]
== END 2022-04-20 00:06 | disposition home or self-care (01) ==
LOC: EDUNIT# 22:19 → ER 22:22
DX: M10.9 Gout, unspecified (principal); F17.210 Nicotine dependence, cigarettes, uncomplicated; Z28.310 Unvaccinated for COVID-19
CPT/HCPCS: 73630

== ENCOUNTER 2022-04-28 17:42 | Emergency (ER) | payer SELFPAY ==
[~2022-04-28] VITALS: Ht 170 cm; Wt 75.7 kg
[~2022-04-28 17:42] MED LIST changes: +PRD20T PO
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
[2022-04-28 18:24] LABS: BASOPHILS % (AUTO) 0 % (0-10); EOSINOPHILS # (AUTO) 0.2 10^3/uL (0.0-0.3); EOSINOPHILS % (AUTO) 2 % (0-10); HEMATOCRIT 46 % (40-54); HEMOGLOBIN 15.4 g/dL (13.3-17.7); LYMPHOCYTES % (AUTO) 30 % (12-44); MEAN CORPUSCULAR HEMOGLOBIN 29 pg (25-34); MEAN CORPUSCULAR HGB CONC 34 g/dL (32-36); MEAN CORPUSCULAR VOLUME 86 fL (80-99); MONOCYTES # (AUTO) 0.7 10^3/uL (0.0-1.0); MONOCYTES % (AUTO) 10 % (0-12); NEUTROPHILS # (AUTO) 3.8 10^3/uL (1.8-7.8); NEUTROPHILS % (AUTO) 57 % (42-75); PLATELET COUNT 317 10^3/uL (130-400); WHITE BLOOD COUNT 6.7 10^3/uL (4.3-11.0)
[2022-04-28 18:38] LABS: CLARITY,URINE CLEAR; COLOR,URINE YELLOW; GLUCOSE, URINE (UA) NEGATIVE (NEGATIVE); KETONES,URINE 1+ (NEGATIVE); LEUKOCYTE ESTERASE ,URINE NEGATIVE (NEGATIVE); NITRITE,URINE NEGATIVE (NEGATIVE); PROTEIN,URINE 2+ (NEGATIVE)
[2022-04-28 18:40] LABS: ALBUMIN 4.2 GM/DL (3.2-4.5)
[2022-04-28 18:41] LABS: POTASSIUM 3.5 MMOL/L (3.6-5.0)
[2022-04-28 18:42] LABS: CALCIUM 9.5 MG/DL (8.5-10.1)
[2022-04-28 18:43] LABS: TOTAL PROTEIN 7.5 GM/DL (6.4-8.2)
[2022-04-28 18:45] LABS: BILIRUBIN,TOTAL 0.3 MG/DL (0.1-1.0)
[2022-04-28] MEDS ORDERED: HOLD METFORMIN - RECEIVED CONTRAST 20 ML VIAL IV SCH (18:45)
[2022-04-28] MEDS ORDERED: IOHEXOL 350 MG/ML 100 ML (OMNIPAQUE 350) VIAL IV ONE (18:45)
[2022-04-28] MEDS ORDERED: NS 100 ML (IVPB) BAG IV ONE (18:45)
[2022-04-28 18:47] LABS: CREATININE SERUM 1.01 MG/DL (0.60-1.30)
[2022-04-28 19:03] LABS: AMORPHOUS SEDIMENT,UR FEW AMOR URATES /LPF; BACTERIA,URINE FEW /HPF
[2022-04-28 19:04] LABS: BILIRUBIN,URINE 1+ (NEGATIVE)
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
--- NOTE | 2022-04-28 19:21 | Diagnostic Imaging Report ---
INDICATION: Pain. FINDINGS: The alignment is normal. There is no fracture or dislocation. Soft tissues are unremarkable. IMPRESSION: No acute fracture or dislocation. Dictated by: Dictated on workstation # [id number]
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
[2022-04-28] MEDS ORDERED: CYCL10TA25 PO (19:42)
[2022-04-28] MEDS ORDERED: NAPR500T8 PO (19:42)
[2022-04-28] MEDS ORDERED: RX-NAPROXEN (NAPROSYN) 250 MG TAB PPK#4 PO STA (19:43)
[2022-04-28] MEDS ORDERED: RX-CYCLOBENZAPRINE 10 MG (FLEXERIL) TAB PPK#3 PO STA (19:43)
[2022-04-28 19:54] VITALS: BP 140/91
== END 2022-04-28 19:54 | disposition home or self-care (01) ==
LOC: EDUNIT# 17:42 → ER 17:43
DX: S80.11XA Contusion of right lower leg, initial encounter (principal); R07.89 Other chest pain; R10.84 Generalized abdominal pain; F17.210 Nicotine dependence, cigarettes, uncomplicated; Z28.310 Unvaccinated for COVID-19; Z87.39 Personal history of other diseases of the musculoskeletal system and connective tissue; V43.62XA Car passenger injured in collision with other type car in traffic accident, initial encounter; Y92.410 Unspecified street and highway as the place of occurrence of the external cause
CPT/HCPCS: 36415; 71045; 71260; 73590; 74177; 80053; 81000; 82150; 83690; 85025

== ENCOUNTER 2022-05-03 12:32 | Emergency (ER) | payer SELFPAY ==
[~2022-05-03] VITALS: Ht 170.1 cm; Wt 75.7 kg
[~2022-05-03 12:32] MED LIST changes: +CYCL10TA25 PO; +NAPR500T8 PO
[2022-05-03 13:27] LABS: BASOPHILS % (AUTO) 0 % (0-10); EOSINOPHILS # (AUTO) 0.1 10^3/uL (0.0-0.3); EOSINOPHILS % (AUTO) 2 % (0-10); HEMATOCRIT 46 % (40-54); HEMOGLOBIN 15.7 g/dL (13.3-17.7); LYMPHOCYTES # (AUTO) 2.8 10^3/uL (1.0-4.0); LYMPHOCYTES % (AUTO) 46 % (12-44); MEAN CORPUSCULAR HEMOGLOBIN 29 pg (25-34); MEAN CORPUSCULAR HGB CONC 34 g/dL (32-36); MEAN CORPUSCULAR VOLUME 85 fL (80-99); MEAN PLATELET VOLUME 9.3 fL (9.0-12.2); MONOCYTES # (AUTO) 0.4 10^3/uL (0.0-1.0); MONOCYTES % (AUTO) 6 % (0-12); NEUTROPHILS # (AUTO) 2.8 10^3/uL (1.8-7.8); NEUTROPHILS % (AUTO) 45 % (42-75); PLATELET COUNT 369 10^3/uL (130-400); WHITE BLOOD COUNT 6.1 10^3/uL (4.3-11.0)
[2022-05-03 13:29] LABS: POTASSIUM 3.9 MMOL/L (3.6-5.0)
[2022-05-03] MEDS ORDERED: NITROGLYCERIN 2% OINT 1 GM UNIT DOSE PACKET TOP STA (13:29)
[2022-05-03 13:30] LABS: CALCIUM 9.4 MG/DL (8.5-10.1)
[2022-05-03] MEDS ORDERED: HEParin 1000 UNIT/ML (10ML VIAL) FOR BOLUS IV SCH (13:30)
[2022-05-03] MEDS ORDERED: HEParin DRIP 25000 UNIT/500ML 500 ML IV SCH (13:30)
[2022-05-03 13:31] LABS: INR 0.8 (0.8-1.4); PROTHROMBIN TIME PATIENT 11.9 SEC (12.2-14.7)
[2022-05-03 13:35] LABS: CREATININE SERUM 0.99 MG/DL (0.60-1.30)
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
[2022-05-03] MEDS ORDERED: HEParin DRIP 25000 UNIT/500ML 500 ML IV ONE (13:45)
[2022-05-03] MEDS ORDERED: fentaNYL INJ 100 MCG/2 ML AMP IVP ONE (16:00)
[2022-05-03 16:31] VITALS: BP 151/103
== END 2022-05-03 16:31 | disposition short-term general hospital (02) ==
LOC: EDUNIT# 12:32 → ER 12:34
DX: I70.201 Unspecified atherosclerosis of native arteries of extremities, right leg (principal); I82.401 Acute embolism and thrombosis of unspecified deep veins of right lower extremity; S80.11XA Contusion of right lower leg, initial encounter; F17.210 Nicotine dependence, cigarettes, uncomplicated; Z28.310 Unvaccinated for COVID-19; V89.2XXA Person injured in unspecified motor-vehicle accident, traffic, initial encounter; Y92.410 Unspecified street and highway as the place of occurrence of the external cause
CPT/HCPCS: 36415; 80048; 85025; 85610; 85730

== ENCOUNTER 2022-09-19 19:21 | Observation (INO) | payer SELFPAY ==
[~2022-09-19] VITALS: Ht 172 cm; Wt 69.6 kg
[2022-09-19] MEDS ORDERED: ONDANSETRON 4 MG/2 ML (SDV) Z0FRAN ONE (19:41)
[2022-09-19] MEDS ORDERED: fentaNYL INJ 100 MCG/2 ML AMP IVP ONE ×2 (19:45→20:45)
[2022-09-19] MEDS ORDERED: NS IV 1000 ML 1,000 ML IV SCH (19:45)
[2022-09-19] MEDS ORDERED: ONDANSETRON 4 MG/2 ML (SDV) Z0FRAN IVP ONE (19:45)
--- NOTE | 2022-09-19 19:46 | ED Abdominal Pain ---
General Chief Complaint: Abdominal/GI Problems Stated Complaint: RIGHT FOOT PAIN Source of Information: Patient Exam Limitations: No Limitations (SHAWNEE TOBAR APRN) History of Present Illness Date Seen by Provider: Sep 19, 2022 Time Seen by Provider: 19:34 Initial Comments 36-year-old male presents to the ER with complaints of severe mid lower abdominal pain his umbilicus starting around 5 PM tonight. He states that he has generally not felt well throughout the day. Reports 1 episode of vomiting after the pain started. Reports he had 4-5 episodes of diarrhea throughout the day. He denies fevers. Denies dysuria. He is also complaining of pain in his right great toe. States it is a burning sensation. He reports that he was diagnosed with a blood clot in his right leg in April, he is currently on Xarelto for this. He does endorse marijuana and alcohol use last night, reports he still smokes cigarettes. He reports that he discussed the pain in his toe primary care provider yesterday. (SHAWNEE TOBAR APRN) Allergies and Home Medications Allergies Coded Allergies: aripiprazole (Verified Allergy, Unknown, 07/30/18) Patient Home Medication List Home Medication List Reviewed: Yes (SHAWNEE TOBAR APRN) Acetaminophen (Tylenol Extra Strength) 500 Mg Tablet, 1,000 MG PO Q8H PRN for PAIN-MILD (1-4), (Reported) Entered as Reported by: CHELSY FELIZ on 09/20/22 1301 Last Action: Reviewed Aspirin (Aspirin EC) 81 Mg Tablet.dr, 81 MG PO DAILY, (Reported) Entered as Reported by: CHELSY FELIZ on 09/20/22 130 Last Action: Continued Rivaroxaban (Xarelto) 2.5 Mg Tablet, 2.5 MG PO BID, (Reported) Entered as Reported by: CHELSY FELIZ on 09/20/22 1301 Last Action: Converted Discontinued Medications Apixaban (Eliquis) 5 Mg Tab.ds.pk, 5 MG PO BID Discontinued Reason: No Longer Taking Prescribed by: YAYA NEWELL on 08/01/18 4157 Last Action: Discontinued Cyclobenzaprine HCl (Cyclobenzaprine HCl) 10 Mg Tablet, 10 MG PO Q8H PRN for S PASMS Discontinued Reason: No Longer Taking Prescribed by: NOEL ROSE on 04/28/221941 Last Action: Discontinued Naproxen (Naproxen) 500 Mg Tablet.dr, 500 MG PO BID Discontinued Reason: No Longer Taking Prescribed by: NOEL ROSE on 04/28/221941 Last Action: Discontinued Ondansetron (Ondansetron Odt) 4 Mg Tab.rapdis, 4 MG PO Q6H PRN for NAUSEA/VOMITING-1ST LINE Discontinued Reason: No Longer Taking Prescribed by: KALE MIN on 03/18/211952 Last Action: Discontinued Prednisone (Prednisone) 20 Mg Tab, 40 MG PO DAILY Discontinued Reason: No Longer Taking Prescribed by: ALENA IBARRA on 04/20/22 0058 Last Action: Discontinued Review of Systems Review of Systems Constitutional: see HPI (SHAWNEE TOBAR APRN) Past Iikehjm-Zcfzhj-Qnwftw Hx Immunizations Up To Date First/Initial COVID19 Vaccinat: DENIES Second COVID19 Vaccination Nolan: DENIES Third COVID19 Vaccination Date: DENIES (SHAWNEE TOBAR APRN) Seasonal Allergies Seasonal Allergies: No (SHAWNEE TOBAR APRN) Past Medical History Surgery/Hospitalization HX: HX OF DVT, STOPPED TAKING MEDICATION "A LONG TIME AGO" Surgeries: Yes (Tongue Clipped) Orthopedic, Tonsillectomy Respiratory: Yes (BILATERAL P.E. 2019) Pulmonary Embolism Cardiac: No Neurological: No Genitourinary: No Gastrointestinal: No Musculoskeletal: Yes Gout Endocrine: No HEENT: No Cancer: No Psychosocial: Yes (Schizoaffective Disorder) Anxiety, Bipolar, Schizophrenia, Depression Integumentary: No Blood Disorders: No (SHAWNEE TOBAR APRN) Physical Exam Vital Signs Vital Signs - First Documented 09/19/22 19:32 Temp 36.9 Pulse 85 Resp 20 B/P (MAP) 140/96 (111) Pulse Ox 100 O2 Delivery Room Air (NOEL ROSE DO) Vital Signs Capillary Refill : (SHAWNEE TOBAR APRN) Height/Weight/BMI Height: 5'7.00" Weight: 204lbs. 0oz. 92.184805og; 26.00 BMI Method:Actual General Appearance: moderate distress Neck: supple, normal inspection Respiratory: lungs clear, normal breath sounds, no respiratory distress, no accessory muscle use Cardiovascular: regular rate, rhythm Gastrointestinal: abnormal bowel sounds (Hypoactive), guarding (All 4 quadrants), tenderness (All 4 quadrants, worse at the umbilicus) Extremities: normal range of motion, normal inspection, no pedal edema, other (Pain to palpation of right great toe, no swelling, no redness, cap refill less than 2 seconds, pulses intact in foot) Neurologic/Psychiatric: alert, normal mood/affect Skin: normal color, warm/dry (SHAWNEE TOBAR APRN) Progress/Results/Core Measures Results/Orders Lab Results Laboratory Tests Test 09/19/22 19:35 09/19/22 20:35 Range/Units White Blood Count 6.9 4.3-11.0 10^3/uL Red Blood Count 5.34 4.30-5.52 10^6/uL Hemoglobin 15.7 13.3-17.7 g/dL Hematocrit 45 40-54 % Mean Corpuscular Volume 84 80-99 fL Mean Corpuscular Hemoglobin 29 25-34 pg Mean Corpuscular Hemoglobin Concent 35 32-36 g/dL Red Cell Distribution Width 15.1 H 10.0-14.5 % Platelet Count 209 130-400 10^3/uL Mean Platelet Volume 9.7 9.0-12.2 fL Immature Granulocyte % (Auto) 0 % Neutrophils (%) (Auto) 61 42-75 % Lymphocytes (%) (Auto) 28 12-44 % Monocytes (%) (Auto) 10 0-12 % Eosinophils (%) (Auto) 1 0-10 % Basophils (%) (Auto) 0 0-10 % Neutrophils # (Auto) 4.2 1.8-7.8 10^3/uL Lymphocytes # (Auto) 1.9 1.0-4.0 10^3/uL Monocytes # (Auto) 0.7 0.0-1.0 10^3/uL Eosinophils # (Auto) 0.1 0.0-0.3 10^3/uL Basophils # (Auto) 0.0 0.0-0.1 10^3/uL Immature Granulocyte # (Auto) 0.0 0.0-0.1 10^3/uL Sodium Level 139 135-145 MMOL/L Potassium Level 3.3 L 3.6-5.0 MMOL/L Chloride Level 106 98-107 MMOL/L Carbon Dioxide Level 17 L 21-32 MMOL/L Anion Gap 16 H 5-14 MMOL/L Blood Urea Nitrogen 8 7-18 MG/DL Creatinine 1.02 0.60-1.30 MG/DL Estimat Glomerular Filtration Rate 98 BUN/Creatinine Ratio 8 Glucose Level 103 70-105 MG/DL Calcium Level 10.1 8.5-10.1 MG/DL Corrected Calcium 9.7 8.5-10.1 MG/DL Total Bilirubin 0.6 0.1-1.0 MG/DL Aspartate Amino Transf (AST/SGOT) 30 5-34 U/L Alanine Aminotransferase (ALT/SGPT) 32 0-55 U/L Alkaline Phosphatase 73 40-136 U/L Total Protein 7.7 6.4-8.2 GM/DL Albumin 4.5 3.2-4.5 GM/DL Lipase 140 H 8-78 U/L Urine Color YELLOW Urine Clarity SL CLOUDY Urine pH 6.0 5-9 Urine Specific Negley 1.010 L 1.016-1.022 Urine Protein 1+ H NEGATIVE Urine Glucose (UA) NEGATIVE NEGATIVE Urine Ketones 1+ H NEGATIVE Urine Nitrite NEGATIVE NEGATIVE Urine Bilirubin NEGATIVE NEGATIVE Urine Urobilinogen 0.2 < = 1.0 MG/DL Urine Leukocyte Esterase NEGATIVE NEGATIVE Urine RBC (Auto) TRACE-I H NEGATIVE Urine RBC RARE /HPF Urine WBC NONE /HPF Urine Squamous Epithelial Cells 0-2 /HPF Urine Crystals NONE /LPF Urine Bacteria NEGATIVE /HPF Urine Casts PRESENT /LPF Urine Granular Casts 0-2 H /LPF Urine Mucus MODERATE H /LPF Urine Culture Indicated NO (NOEL ROSE DO) Vital Signs/I&O 09/19/22 09/19/22 19:32 21:20 Temp 36.9 Pulse 85 85 Resp 20 18 B/P (MAP) 140/96 (111) 136/84 Pulse Ox 100 99 O2 Delivery Room Air Room Air (MILTON,NOEL Leal DO) Progress Progress Note : Progress Note Patient seen and evaluated, lying in bed, moderate distress. Based on exam and symptoms, work-up initiated. CBC, CMP, lipase, UA, CT abdomen pelvis. IV fluids, Zofran, fentanyl ordered. X-ray of right foot ordered. Pain is likely neuropathy. No signs of gout or cellulitis. 2100 Labs and imaging reviewed. CBC grossly normal. CMP shows decreased potassium 3.3, decreased CO2 17, slightly elevated anion gap 16. Lipase elevated 140. Urinalysis shows 1+ protein, 1+ ketones, trace RBCs. CT abdomen pelvis shows no acute abnormality. X-ray of the foot is negative for acute abnormality. I called and spoke with Dr. Rodriguez, [facility] hospitalist, regarding patient. She recommends admission for observation for IV fluids and pain management. Results discussed with patient. Plan of care discussed with patient. Patient agreeable to admission. (SHAWNEE TOBAR APRN) Diagnostic Imaging Diagonstic Imaging: CT Plain Films/CT/US/NM/MRI: abdomen, pelvis Comments [facility] [place] NAME: MICHAEL BRAY [facility] REC#: [id number] PT STATUS: REG ER : 1985 PHYSICIAN: SHAWNEE TOBAR APRN ADMIT DATE: 09/19/22/ER Signed Date of Exam:09/19/22 CT ABDOMEN/PELVIS W PROCEDURE: CT abdomen and pelvis with contrast. TECHNIQUE: Multiple contiguous axial images were obtained through the abdomen and pelvis after administration of intravenous contrast. Auto Exposure Controls were utilized during the CT exam to meet ALARA standards for radiation dose reduction. All CT scans use one or more of the following dose optimizing techniques: automated exposure control, MA and/or KvP adjustment based on patient size and exam type or iterative reconstruction. INDICATION: Abdominal pain and vomiting. FINDINGS: The lung bases are clear. Liver appears normal. Gallbladder is normal. Portal vein is patent. Pancreas is normal. Spleen is not enlarged. Adrenals are normal. Kidneys are normal. Small bowel is not dilated. Appendix is normal. The colon is normal. Urinary bladder is normal. There is no intraperitoneal free air or free fluid. IMPRESSION: Unremarkable CT abdomen and pelvis. Dictated by: Dictated on workstation # [id number] Dict: 09/19/222027 Trans: 09/19/222041 [facility] [id number] Interpreted by: ALENA AREVALO MD Electronically signed by: ALENA AREVALO MD 09/19/222041 Diagonstic Imaging: Xray Plain Films/CT/US/NM/MRI: other (foot) Comments [facility] [place] NAME: MICHAEL BRAY [facility] REC#: [id number] PT STATUS: REG ER : 1985 PHYSICIAN: SHAWNEE TOBAR APRN ADMIT DATE: 09/19/22/ER Signed Date of Exam:09/19/22 FOOT, RIGHT, 3 VIEW INDICATION: Right foot pain Three views of the right foot show no fracture, dislocation or other acute abnormalities. IMPRESSION: Negative right foot. Dictated by: Dictated on workstation # [id number] Dict: 09/19/222026 Trans: 09/19/222042 [facility] [id number] Interpreted by: ALENA AREVALO MD Electronically signed by: ALENA AREVALO MD 09/19/222042 (SHAWNEE TOBAR APRN) Departure Communication (Admissions) Time/Spoke to Admitting Phy: 21:00 Dr. Rodriguez, [facility] hospitalist, see progress note. (SHAWNEE TOBAR APRN) Impression Primary Impression: Elevated lipase Additional Impression: Abdominal pain Qualified Codes: R10.30 - Lower abdominal pain, unspecified Disposition: ADMITTED INPATIENT Condition: Stable Admissions Decision to Admit Reason: Admit from ER (General) Decision to Admit/Date: Sep 19, 2022 Time/Decision to Admit Time: 21:05 (SHAWNEE TOBAR APRN) Departure-Patient Inst. Referrals: [facility] [place] (PCP/Family) Primary Care Physician ATTENDING PHYSICIAN NOTE: I WAS PHYSICALLY PRESENT ER PHYSICIAN, BUT I WAS NOT INVOLVED IN ANY DECISION MAKING OR ANY CARE OF THIS PATIENT, AND I AM NOT COLLABORATING PHYSICIAN. (NOEL ROSE DO) SHAWNEE TOBAR APRN Sep 19, 2022 19:45 NOEL ROSE DO Sep 21, 2022 07:19
[2022-09-19 19:52] LABS: BASOPHILS % (AUTO) 0 % (0-10); EOSINOPHILS # (AUTO) 0.1 10^3/uL (0.0-0.3); EOSINOPHILS % (AUTO) 1 % (0-10); HEMATOCRIT 45 % (40-54); HEMOGLOBIN 15.7 g/dL (13.3-17.7); LYMPHOCYTES # (AUTO) 1.9 10^3/uL (1.0-4.0); LYMPHOCYTES % (AUTO) 28 % (12-44); MEAN CORPUSCULAR HEMOGLOBIN 29 pg (25-34); MEAN CORPUSCULAR HGB CONC 35 g/dL (32-36); MEAN CORPUSCULAR VOLUME 84 fL (80-99); MEAN PLATELET VOLUME 9.7 fL (9.0-12.2); MONOCYTES # (AUTO) 0.7 10^3/uL (0.0-1.0); MONOCYTES % (AUTO) 10 % (0-12); NEUTROPHILS # (AUTO) 4.2 10^3/uL (1.8-7.8); NEUTROPHILS % (AUTO) 61 % (42-75); PLATELET COUNT 209 10^3/uL (130-400); WHITE BLOOD COUNT 6.9 10^3/uL (4.3-11.0)
[2022-09-19] MEDS ORDERED: NS 100 ML (IVPB) BAG IV ONE (20:15)
[2022-09-19] MEDS ORDERED: HOLD METFORMIN - RECEIVED CONTRAST 20 ML VIAL IV SCH (20:15)
[2022-09-19] MEDS ORDERED: IOHEXOL 350 MG/ML 100 ML (OMNIPAQUE 350) VIAL IV ONE (20:15)
[2022-09-19 20:24] LABS: ALBUMIN 4.5 GM/DL (3.2-4.5); BILIRUBIN,TOTAL 0.6 MG/DL (0.1-1.0); CALCIUM 10.1 MG/DL (8.5-10.1); CREATININE SERUM 1.02 MG/DL (0.60-1.30); POTASSIUM 3.3 MMOL/L (3.6-5.0); TOTAL PROTEIN 7.7 GM/DL (6.4-8.2)
--- NOTE | 2022-09-19 20:30 | Diagnostic Imaging Report ---
PROCEDURE: CT abdomen and pelvis with contrast. TECHNIQUE: Multiple contiguous axial images were obtained through the abdomen and pelvis after administration of intravenous contrast. Auto Exposure Controls were utilized during the CT exam to meet ALARA standards for radiation dose reduction. All CT scans use one or more of the following dose optimizing techniques: automated exposure control, MA and/or KvP adjustment based on patient size and exam type or iterative reconstruction. INDICATION: Abdominal pain and vomiting. FINDINGS: The lung bases are clear. Liver appears normal. Gallbladder is normal. Portal vein is patent. Pancreas is normal. Spleen is not enlarged. Adrenals are normal. Kidneys are normal. Small bowel is not dilated. Appendix is normal. The colon is normal. Urinary bladder is normal. There is no intraperitoneal free air or free fluid. IMPRESSION: Unremarkable CT abdomen and pelvis. Dictated by: Dictated on workstation # [id number]
--- NOTE | 2022-09-19 20:31 | Diagnostic Imaging Report ---
INDICATION: Right foot pain Three views of the right foot show no fracture, dislocation or other acute abnormalities. IMPRESSION: Negative right foot. Dictated by: Dictated on workstation # [id number]
[2022-09-19 20:44] LABS: BILIRUBIN,URINE NEGATIVE (NEGATIVE); CLARITY,URINE SL CLOUDY; COLOR,URINE YELLOW; GLUCOSE, URINE (UA) NEGATIVE (NEGATIVE); KETONES,URINE 1+ (NEGATIVE); LEUKOCYTE ESTERASE ,URINE NEGATIVE (NEGATIVE); NITRITE,URINE NEGATIVE (NEGATIVE); PROTEIN,URINE 1+ (NEGATIVE)
[2022-09-19] MEDS ORDERED: PROCHLORPERAZINE 10 MG/2ML INJ (COMPAZINE) IV ONE (20:45)
[2022-09-19 20:57] LABS: BACTERIA,URINE NEGATIVE /HPF; RBC,URINE RARE /HPF; SQUAMOUS EPITHELIAL CELL,UR 0-2 /HPF
[2022-09-19 20:58] LABS: GRANULAR CASTS,URINE 0-2 /LPF
[2022-09-19] MEDS ORDERED: morphine INJ 10 MG/ML 1ML (SYR OR VIAL) IVP STA (21:05)
[2022-09-19] MEDS ORDERED: KCL 20 MEQ TAB (K-DUR) PO ONE (21:15)
[2022-09-19 21:30] VITALS: BP 159/91
[2022-09-19] MEDS ORDERED: NS IV 1000 ML 1,000 ML ONE (21:31)
[2022-09-19] MEDS: HYDROmorphone 2 MG/ML VIAL (DILAUDID) IV PRN (22:13)
[2022-09-19] MEDS: NS IV 1000 ML 1,000 ML IV SCH (22:14)
[2022-09-19 23:06] VITALS: BP 135/78
[2022-09-19] MEDS: morphine INJ 10 MG/ML 1ML (SYR OR VIAL) IV PRN (23:54)
[2022-09-19] MEDS: ONDANSETRON 4 MG/2 ML (SDV) Z0FRAN IV PRN (23:54)
[2022-09-20] MEDS: HYDROmorphone 2 MG/ML VIAL (DILAUDID) IV PRN ×4 (01:48→16:28)
[2022-09-20] MEDS: PROCHLORPERAZINE 10 MG/2ML INJ (COMPAZINE) IV PRN ×2 (01:48→20:29)
[2022-09-20] MEDS: morphine INJ 10 MG/ML 1ML (SYR OR VIAL) IV PRN ×6 (03:02→22:40)
[2022-09-20 03:23] VITALS: BP 147/80
[2022-09-20] MEDS: ONDANSETRON 4 MG/2 ML (SDV) Z0FRAN IV PRN ×3 (05:31→22:40)
[2022-09-20] MEDS: NS IV 1000 ML 1,000 ML IV SCH ×3 (05:31→20:30)
[2022-09-20 05:43] LABS: BASOPHILS % (AUTO) 0 % (0-10); EOSINOPHILS % (AUTO) 0 % (0-10); HEMATOCRIT 41 % (40-54); HEMOGLOBIN 13.9 g/dL (13.3-17.7); LYMPHOCYTES # (AUTO) 1.4 10^3/uL (1.0-4.0); LYMPHOCYTES % (AUTO) 17 % (12-44); MEAN CORPUSCULAR HEMOGLOBIN 29 pg (25-34); MEAN CORPUSCULAR HGB CONC 34 g/dL (32-36); MEAN CORPUSCULAR VOLUME 86 fL (80-99); MEAN PLATELET VOLUME 10.1 fL (9.0-12.2); MONOCYTES # (AUTO) 0.8 10^3/uL (0.0-1.0); MONOCYTES % (AUTO) 10 % (0-12); NEUTROPHILS % (AUTO) 73 % (42-75); PLATELET COUNT 182 10^3/uL (130-400); WHITE BLOOD COUNT 8.3 10^3/uL (4.3-11.0)
[2022-09-20 05:53] LABS: CALCIUM 8.6 MG/DL (8.5-10.1)
[2022-09-20 05:57] LABS: CREATININE SERUM 0.86 MG/DL (0.60-1.30)
[2022-09-20 07:16] VITALS: BP 131/73
[2022-09-20 11:53] VITALS: BP 154/87
[2022-09-20] MEDS ORDERED: ACET-2267 PO (13:01)
[2022-09-20] MEDS ORDERED: ASPI-1238 PO (13:01)
[2022-09-20] MEDS ORDERED: RIVA2.5T5 PO (13:01)
[2022-09-20 16:00] VITALS: BP 153/82
[2022-09-20] MEDS: ACETAMINOPHEN 500 MG TAB (TYLENOL) PO PRN ×2 (16:57→22:57)
--- NOTE | 2022-09-20 18:10 | History & Physical ---
HPI History of Present Illness: 36 yo M that presented with upper abdominal pain that started suddenly yesterday around 5 pm. States that he has never had this pain previously. States that he has been drinking since he was 13 years old. Generally drinks about 3 tall boys daily. Denies ever having to be in the hospital for withdraw symptoms. Denies a ny withdraw seizures. He did quit drinking a few years ago for 3 years and then started drinking again due to right foot pain. States that he had a blood clot in his right leg and has been having pain since then. States that he was never told what caused his blood clots but sister in the room and states that she had a PE and their mother also had a blood clot. Source: patient, family (sister) Exam Limitations: no limitations Date seen by provider: Sep 20, 2022 Time Seen by Provider: 11:05 Attending Physician [place] PCP Admitting Physician: Saundra Rodriguez MD Attending Physician: Saundra Rodriguez MD Consult Date of Admission Sep 19, 2022 at 21:25 Home Medications Home Medications Reviewed patient Home Medication Reconciliation performed by pharmacy medication reconciliations library technician and/or nursing. Patients Allergies have been reviewed. Allergies Coded Allergies: aripiprazole (Verified Allergy, Unknown, 07/30/18) VPS-[id number] Hx Patient Social History Smoking Status: Unknown if Ever Smoked 2nd Hand Smoke Exposure: Yes Recent Hopitalizations: No Alcohol Use?: Yes Immunizations Up To Date First/Initial COVID19 Vaccinat: DENIES Second COVID19 Vaccination Nolan: DENIES Third COVID19 Vaccination Date: DENIES Past Medical History EtOH dependence Right LE blood clot Review of Systems (CHC) Constitutional: No chills, No fever EENTM: no symptoms reported; No nose congestion, No nose pain Respiratory: no symptoms reported; No cough, No dyspnea on exertion, No short of breath Cardiovascular: no symptoms reported; No chest pain, No edema, No palpitations Gastrointestinal: abdominal pain, diarrhea, loss of appetite; No nausea, No vomiting Genitourinary: no symptoms reported; No frequency, No hematuria Musculoskeletal: No back pain; joint pain, muscle pain Skin: no symptoms reported Psychiatric/Neurological: No Symptoms Reported Reviewed Test Results Reviewed Test Results Lab Laboratory Tests Test 09/19/22 19:35 09/19/22 20:35 09/20/22 05:18 Range/Units White Blood Count 6.9 8.3 4.3-11.0 10^3/uL Red Blood Count 5.34 4.75 4.30-5.52 10^6/uL Hemoglobin 15.7 13.9 13.3-17.7 g/dL Hematocrit 45 41 40-54 % Mean Corpuscular Volume 84 86 80-99 fL Mean Corpuscular Hemoglobin 29 29 25-34 pg Mean Corpuscular Hemoglobin Concent 35 34 32-36 g/dL Red Cell Distribution Width 15.1 H 15.6 H 10.0-14.5 % Platelet Count 209 182 130-400 10^3/uL Mean Platelet Volume 9.7 10.1 9.0-12.2 fL Immature Granulocyte % (Auto) 0 0 % Neutrophils (%) (Auto) 61 73 42-75 % Lymphocytes (%) (Auto) 28 17 12-44 % Monocytes (%) (Auto) 10 10 0-12 % Eosinophils (%) (Auto) 1 0 0-10 % Basophils (%) (Auto) 0 0 0-10 % Neutrophils # (Auto) 4.2 6.0 1.8-7.8 10^3/uL Lymphocytes # (Auto) 1.9 1.4 1.0-4.0 10^3/uL Monocytes # (Auto) 0.7 0.8 0.0-1.0 10^3/uL Eosinophils # (Auto) 0.1 0.0 0.0-0.3 10^3/uL Basophils # (Auto) 0.0 0.0 0.0-0.1 10^3/uL Immature Granulocyte # (Auto) 0.0 0.0 0.0-0.1 10^3/uL Sodium Level 139 139 135-145 MMOL/L Potassium Level 3.3 L 4.0 3.6-5.0 MMOL/L Chloride Level 106 108 H 98-107 MMOL/L Carbon Dioxide Level 17 L 20 L 21-32 MMOL/L Anion Gap 16 H 11 5-14 MMOL/L Blood Urea Nitrogen 8 6 L 7-18 MG/DL Creatinine 1.02 0.86 0.60-1.30 MG/DL Estimat Glomerular Filtration Rate 98 116 BUN/Creatinine Ratio 8 7 Glucose Level 103 115 H 70-105 MG/DL Calcium Level 10.1 8.6 8.5-10.1 MG/DL Corrected Calcium 9.7 8.5-10.1 MG/DL Total Bilirubin 0.6 0.1-1.0 MG/DL Aspartate Amino Transf (AST/SGOT) 30 5-34 U/L Alanine Aminotransferase (ALT/SGPT) 32 0-55 U/L Alkaline Phosphatase 73 40-136 U/L Total Protein 7.7 6.4-8.2 GM/DL Albumin 4.5 3.2-4.5 GM/DL Lipase 140 H 69 8-78 U/L Urine Color YELLOW Urine Clarity SL CLOUDY Urine pH 6.0 5-9 Urine Specific [place] 1.010 L 1.016-1.022 Urine Protein 1+ H NEGATIVE Urine Glucose (UA) NEGATIVE NEGATIVE Urine Ketones 1+ H NEGATIVE Urine Nitrite NEGATIVE NEGATIVE Urine Bilirubin NEGATIVE NEGATIVE Urine Urobilinogen 0.2 < = 1.0 MG/DL Urine Leukocyte Esterase NEGATIVE NEGATIVE Urine RBC (Auto) TRACE-I H NEGATIVE Urine RBC RARE /HPF Urine WBC NONE /HPF Urine Squamous Epithelial Cells 0-2 /HPF Urine Crystals NONE /LPF Urine Bacteria NEGATIVE /HPF Urine Casts PRESENT /LPF Urine Granular Casts 0-2 H /LPF Urine Mucus MODERATE H /LPF Urine Culture Indicated NO Physical Exam-(CHC) Physical Exam Vital Signs VS - Last 72 Hours, by Label 09/19/22 09/19/22 09/19/22 09/19/22 19:32 21:20 21:30 21:30 Temp 36.9 36.8 Pulse 85 85 74 Resp 20 18 20 B/P (MAP) 140/96 (111) 136/84 159/91 (113) Pulse Ox 100 99 97 O2 Delivery Room Air Room Air Room Air Room Air 09/19/22 09/20/22 09/20/22 09/20/22 23:06 03:23 07:16 08:00 Temp 36.3 37.3 37.4 Pulse 74 92 85 Resp 16 16 20 B/P (MAP) 135/78 (97) 147/80 (102) 131/73 (92) Pulse Ox 99 96 92 92 O2 Delivery Room Air Room Air Room Air Room Air 09/20/22 09/20/22 09/20/22 11:53 16:00 16:57 Temp 36.8 38.3 38.3 Pulse 94 70 Resp 20 18 B/P (MAP) 154/87 (109) 153/82 (105) Pulse Ox 96 98 O2 Delivery Room Air Room Air Capillary Refill : Less Than 3 Seconds General Appearance: WD/WN, no apparent distress HEENT: PERRL/EOMI Neck: non-tender, full range of motion Respiratory: chest non-tender, lungs clear, normal breath sounds, no respirato ry distress, no accessory muscle use Cardiovascular: normal peripheral pulses, regular rate, rhythm, no edema, no murmur Peripheral Pulses: 2+ Femoral (R), 2+ Femoral (L), 2+ Dorsalis Pedis (R), 2+ Left Dors-Pedis (L) Gastrointestinal: soft; No rebound; tenderness (periumbilical and epigastri ttp, no rebound or guarding) Back: no CVA tenderness, no vertebral tenderness Extremities: normal range of motion, no pedal edema, no calf tenderness, normal capillary refill Neurologic/Psychiatric: edge inker II-XII nml as tested, alert, oriented x 3 Skin: normal color, warm/dry Lymphatic: no adenopathy Assessment/Plan Assessment/Plan Admission Status: Observation (1) Pancreatitis, alcoholic, acute Status: Acute Assessment & Plan: - CLD, will advance diet as tolerated, IVFs Qualifiers: Qualified Codes: K85.20 - Alcohol induced acute pancreatitis without n ecrosis or infection (2) Alcohol dependence Status: Chronic Assessment & Plan: - CIWS, thiamine and folic acid Qualifiers: Qualified Codes: F10.20 - Alcohol dependence, uncomplicated (3) Right foot pain Status: Acute Assessment & Plan: - Reviewed normal Xray, discussed possible starting gabapentin for nerve pain (4) H/O deep venous thrombosis Status: Chronic Assessment & Plan: - Restarted OAC SUSAN HANNON MD Sep 20, 2022 18:10
[2022-09-20] MEDS ORDERED: LORazepam 1 MG (ATIVAN) TAB PO PRN (18:15)
[2022-09-20 20:06] VITALS: BP 132/86
[2022-09-20] MEDS ORDERED: NON-FORMULARY MEDICATION 1 EA EA (Rivaroxaban (Xarelto) 2.5 MG) PO SCH (21:00)
[2022-09-20] MEDS: RIVAROXABAN 2.5 MG TABLET (XARELTO) PO SCH (21:15)
[2022-09-20] MEDS: HYDROcodone/APAP 7.5 MG/325 MG (LORTAB, LORCET PLUS) TABLET PO PRN (22:22)
[2022-09-20 23:10] VITALS: BP 137/79
[2022-09-21] MEDS: morphine INJ 10 MG/ML 1ML (SYR OR VIAL) IV PRN ×3 (00:30→05:34)
[2022-09-21] MEDS: HYDROcodone/APAP 7.5 MG/325 MG (LORTAB, LORCET PLUS) TABLET PO PRN ×2 (03:03→08:29)
[2022-09-21 03:09] VITALS: BP 132/86
[2022-09-21] MEDS: PROCHLORPERAZINE 10 MG/2ML INJ (COMPAZINE) IV PRN (05:33)
[2022-09-21] MEDS: NS IV 1000 ML 1,000 ML IV SCH (05:34)
[2022-09-21] MEDS ORDERED: diphenhydrAMINE 25 MG TAB (BENADRYL) PO PRN (06:15)
[2022-09-21] MEDS ORDERED: THIAMINE 100 MG (VITAMIN B-1) TAB PO SCH (07:00)
[2022-09-21 07:27] VITALS: BP 120/65
[2022-09-21] MEDS: RIVAROXABAN 2.5 MG TABLET (XARELTO) PO SCH (08:29)
[2022-09-21] MEDS ORDERED: FOLIC ACID 1 MG TAB PO SCH (09:00)
[2022-09-21] MEDS ORDERED: ASPIRIN E.C. 81 MG (ECOTRIN) TAB PO SCH (09:00)
[2022-09-21 11:38] VITALS: BP 126/70
--- NOTE | 2022-09-21 13:10 | Discharge Summary ---
Diagnosis/Chief Complaint Date of Admission Sep 19, 2022 at 21:25 Date of Discharge 09/21/22 Admission Diagnosis Admission Diagnosis See problem list Discharge Diagnosis See problem list Problems/Diagnosis: (1) Pancreatitis, alcoholic, acute Assessment & Plan: - CLD, will advance diet as tolerated, IVFs 09/21: tolerated bland regular diet, pain much improved, ok to d/c home Qualifiers: Qualified Codes: K85.20 - Alcohol induced acute pancreatitis without necrosis or infection Status: Acute (2) Alcohol dependence Assessment & Plan: - CIWS, thiamine and folic acid 09/21: Interested in outpatient treatment, SW to arrange appts Qualifiers: Qualified Codes: F10.20 - Alcohol dependence, uncomplicated Status: Chronic (3) Right foot pain Assessment & Plan: - Reviewed normal Xray, discussed possible starting gabapentin for nerve pain Status: Acute (4) H/O deep venous thrombosis Assessment & Plan: - Restarted OAC Status: Chronic Chief Complaint/HPI Chief Complaint/HPI 36 yo M that presented with upper abdominal pain that started suddenly yesterday around 5 pm. States that he has never had this pain previously. States that he has been drinking since he was 13 years old. Generally drinks about 3 tall boys daily. Denies ever having to be in the hospital for withdraw symptoms. Denies any withdraw seizures. He did quit drinking a few years ago for 3 years and then started drinking again due to right foot pain. States that he had a blood clot in his right leg and has been having pain since then. States that he was never told what caused his blood clots but sister in the room and states that she had a PE and their mother also had a blood clot. Discharge Summary-Simple/Stand Consultations Discharge Physical Examination Allergies: Coded Allergies: aripiprazole (Verified Allergy, Unknown, 07/30/18) Vitals & I&Os Vital Sign - Last 12Hours Date Time Temp Pulse Resp B/P (MAP) Pulse Ox O2 Delivery O2 Flow Rate FiO2 09/21/22 11:38 37.5 67 20 126/70 (88) 95 Room Air Intake and Output 09/21/22 00:00 Intake Total 4044 ml Balance 4044 ml General Appearance: Alert, Oriented X3, No Acute Distress Respiratory: Clear to Auscultation, Normal Air Movement Cardiovascular: Regular Rate, No Murmurs Abdominal: Normal Bowel Sounds, Soft, Other (mild epigastric ttp) Extremities: No Edema, No Tenderness/Swelling Skin: No Rashes Neuro: Normal Speech Psych/Mental Status: Mental Status NL, Mood NL Hospital Course See final discharge diagnosis. Discharge Condition at discharge stable Instructions to patient/family Please see electronic discharge instructions given to patient. Discharge Medications Reviewed and agree with Discharge Medication list on patient's Discharge Instruction sheet SUSAN HANNON MD Sep 21, 2022 13:10
[2022-09-21] MEDS ORDERED: ONDA4TAB11 SL (13:11)
--- NOTE | 2022-09-21 13:12 | Discharge Summary ---
Discharge [facility] Discharge Medications New, Converted or Re-Newed RX: Transmitted to Pharmacy New Medications: Ondansetron (Ondansetron Odt) 4 Mg Tab.rapdis 4 MG SL Q4H PRN for NAUSEA/VOMITING, #20 TAB Continued Medications: Acetaminophen (Tylenol Extra Strength) 500 Mg Tablet 1000 MG PO Q8H PRN for PAIN-MILD (1-4), TAB Aspirin (Aspirin EC) 81 Mg Tablet.dr 81 MG PO DAILY, TAB Rivaroxaban (Xarelto) 2.5 Mg Tablet 2.5 MG PO BID, TAB LAST FILLED 06-22-2022 #60/30 DAY SUPPLY Patient Instructions Goal/Follow Up Appt: F.u with PCP 1 week SW will help set up appt with ATS Activity & Diet Discharge Diet: Regular Diet (Aroda foods for 1 week) Activity as Tolerated: Yes SUSAN HANNON MD Sep 21, 2022 13:12
[2022-09-21 14:13] VITALS: BP 126/70
== END 2022-09-21 13:10 | disposition home or self-care (01) ==
LOC: EDUNIT# 19:21 → ER 19:24 → UNDOADMOB 21:25 → 4TH 21:25 → UNDODISOB 09-21 14:10
PROVIDERS: ADMIT Family Medicine; ATTEND Family Medicine
DX: K85.20 Alcohol induced acute pancreatitis without necrosis or infection (principal); F10.20 Alcohol dependence, uncomplicated; M79.671 Pain in right foot; F17.210 Nicotine dependence, cigarettes, uncomplicated; F12.90 Cannabis use, unspecified, uncomplicated; Z86.718 Personal history of other venous thrombosis and embolism; Z79.01 Long term (current) use of anticoagulants; Z28.310 Unvaccinated for COVID-19; Z28.9 Immunization not carried out for unspecified reason; Z79.82 Long term (current) use of aspirin; Z79.899 Other long term (current) drug therapy; Z91.09 Other allergy status, other than to drugs and biological substances
CPT/HCPCS: 73630; 74177; 80048; 80053; 81000; 83690 ×2; 85025 ×2; 96361 ×4; 96374; 96375 ×2; 96376 ×4; 99284; G0378; 36415

== ENCOUNTER 2022-09-23 03:36 | Emergency (ER) | payer SELFPAY ==
[~2022-09-23] VITALS: Ht 172.7 cm; Wt 69.3 kg
[~2022-09-23 03:36] MED LIST changes: +ACET-2267 PO; +ASPI-1238 PO; +ONDA4TAB11 SL; +RIVA2.5T5 PO
[2022-09-23 04:33] LABS: BASOPHILS % (AUTO) 0 % (0-10); EOSINOPHILS # (AUTO) 0.1 10^3/uL (0.0-0.3); EOSINOPHILS % (AUTO) 1 % (0-10); HEMATOCRIT 39 % (40-54); HEMOGLOBIN 13.4 g/dL (13.3-17.7); LYMPHOCYTES # (AUTO) 1.5 10^3/uL (1.0-4.0); LYMPHOCYTES % (AUTO) 25 % (12-44); MEAN CORPUSCULAR HEMOGLOBIN 29 pg (25-34); MEAN CORPUSCULAR HGB CONC 35 g/dL (32-36); MEAN CORPUSCULAR VOLUME 84 fL (80-99); MEAN PLATELET VOLUME 9.7 fL (9.0-12.2); MONOCYTES # (AUTO) 0.8 10^3/uL (0.0-1.0); MONOCYTES % (AUTO) 14 % (0-12); NEUTROPHILS # (AUTO) 3.5 10^3/uL (1.8-7.8); NEUTROPHILS % (AUTO) 59 % (42-75); PLATELET COUNT 204 10^3/uL (130-400); WHITE BLOOD COUNT 5.9 10^3/uL (4.3-11.0)
[2022-09-23 04:42] LABS: ALBUMIN 3.6 GM/DL (3.2-4.5); CHLORIDE 105 MMOL/L (98-107); SODIUM 139 MMOL/L (135-145)
[2022-09-23 04:44] LABS: GLUCOSE 107 MG/DL (70-105); TOTAL PROTEIN 6.8 GM/DL (6.4-8.2)
[2022-09-23 04:45] LABS: CARBON DIOXIDE 21 MMOL/L (21-32)
[2022-09-23] MEDS ORDERED: LACTATED RINGERS 1,000 ML IV ONE (04:45)
[2022-09-23] MEDS ORDERED: NITROGLYCERIN 2% OINT 1 GM UNIT DOSE PACKET TOP ONE (04:45)
[2022-09-23 04:46] LABS: BILIRUBIN,TOTAL 0.5 MG/DL (0.1-1.0); PROTHROMBIN TIME PATIENT 13.1 SEC (12.2-14.7)
[2022-09-23 04:48] LABS: ALKALINE PHOSPHATASE 59 U/L (40-136); CREATININE SERUM 0.84 MG/DL (0.60-1.30); GFR ESTIMATED 117
[2022-09-23 04:49] LABS: BUN/CREATININE RATIO 7
[2022-09-23 04:51] LABS: ALANINE AMINOTRANSFERASE 20 U/L (0-55); LIPASE 19 U/L (8-78)
[2022-09-23] MEDS ORDERED: HEParin 1000 UNIT/ML (10ML VIAL) FOR BOLUS IV ONE (05:00)
[2022-09-23] MEDS ORDERED: HEParin DRIP 25000 UNIT/500ML 500 ML IV ONE (05:00)
--- NOTE | 2022-09-23 05:03 | ED General ---
General Chief Complaint: Lower Extremity Stated Complaint: NO FEELING OF TOES ON RT FOOT,ABD PX Nursing Triage Note: TO ED VIA POV AND AMBULATORY TO ROOM 7 WITH C/O "NO FEELING WITH OCCASIONAL LIGHTING SHOOTING DOWN" RIGHT TOES SINCE 1600 YESTERDAY. PT HAS HX OF BLOOD CLOTS IN RLE. PT IS SUPPOSED TO TAKE BABY ASA AND XARELTO DAILY, BUT STATES HE HAS MISSED MANY DOSES WITH LAST DOSE APPROX 2 DAYS AGO. UNABLE TO PALPATE DORSALIS PEDIS OR TIBIAL PULSES ON RIGHT FOOT WELL UNABLE TO DOPPLER DP AND TP PULSES ON RIGHT FOOT. CAPILLARY REFILL APPROX 5 SECONDS TO RIGHT TOES. PT CAN FEEL PINPRICKS TO RIGHT TOES. LEFT DP AND TP PULSES CANNOT BE PALPATED, BUT ARE FOUND WITH DOPPLER AND MARKED WITH SKIN MARKER. Source of Information: Patient, Old Records Exam Limitations: No Limitations History of Present Illness Date Seen by Provider: Sep 23, 2022 Time Seen by Provider: 04:04 Initial Comments This 36-year-old young man presents to the emergency room with complaints of a paresthesia type of sensation in his right foot. Right foot is also cool to the touch and pulseless on exam. He has history of right lower extremity arterial occlusion treated with thrombectomy at [facility] in [place] in April 2022. He was admitted at this facility on September 19 for treatment of pancreatitis. He was discharged on September 21. He has not taken any of his anticoagulants since being discharged. There is obvious concern for recurrence of his arterial occlusion. Dorsal and posterior pedal pulses were observed by Doppler on the left foot. No pulses could be found on the right foot using the same Doppler. Patient secondarily complains of some lingering abdominal pain left over from his pancreatitis. He has not been having any vomiting since discharge from the hospital. He denies any recent alcohol consumption. Patient also has history of prior PE. Allergies and Home Medications Allergies Coded Allergies: aripiprazole (Verified Allergy, Unknown, 07/30/18) Patient Home Medication List Home Medication List Reviewed: Yes Acetaminophen (Tylenol Extra Strength) 500 Mg Tablet, 1,000 MG PO Q8H PRN for PAIN-MILD (1-4), (Reported) Entered as Reported by: CHELSY FELIZ on 09/20/22 1301 Aspirin (Aspirin EC) 81 Mg Tablet.dr, 81 MG PO DAILY, (Reported) Entered as Reported by: CHELSY FELIZ on 09/20/22 1301 Ondansetron (Ondansetron Odt) 4 Mg Tab.rapdis, 4 MG SL Q4H PRN for NAUSEA/VOMITING Prescribed by: SUSAN HANNON on 09/21/22 1311 Rivaroxaban (Xarelto) 2.5 Mg Tablet, 2.5 MG PO BID, (Reported) Entered as Reported by: CHELSY FELIZ on 09/20/22 1301 Discontinued Medications Apixaban (Eliquis) 5 Mg Tab.ds.pk, 5 MG PO BID Discontinued Reason: No Longer Taking Prescribed by: YAYA NEWELL on 08/01/18 0543 Cyclobenzaprine HCl (Cyclobenzaprine HCl) 10 Mg Tablet, 10 MG PO Q8H PRN for SPASMS Discontinued Reason: No Longer Taking Prescribed by: NOEL ROSE on 04/28/221941 Naproxen (Naproxen) 500 Mg Tablet.dr, 500 MG PO BID Discontinued Reason: No Longer Taking Prescribed by: NOEL ROSE on 04/28/221941 Ondansetron (Ondansetron Odt) 4 Mg Tab.rapdis, 4 MG PO Q6H PRN for NAUSEA/VOMITING-1ST LINE Discontinued Reason: No Longer Taking Prescribed by: KALE MIN on 03/18/211952 Prednisone (Prednisone) 20 Mg Tab, 40 MG PO DAILY Discontinued Reason: No Longer Taking Prescribed by: ALENA IBARRA on 04/20/22 0058 Review of Systems Review of Systems Constitutional: no symptoms reported EENTM: no symptoms reported Respiratory: no symptoms reported Cardiovascular: see HPI Gastrointestinal: no symptoms reported Genitourinary: no symptoms reported Musculoskeletal: no symptoms reported Skin: no symptoms reported Psychiatric/Neurological: No Symptoms Reported Hematologic/Lymphatic: No Symptoms Reported Immunological/Allergic: no symptoms reported Past Udtfoye-Bivaef-Frtxjw Hx Patient Social History Tobacco Use?: Yes Tobacco type used: Cigarettes Smoking Status: Current Everyday Smoker Substance use?: Yes Substance type: Marijuana Substance frequency: Several times a month Alcohol Use?: Yes Alcohol type: Beer Alcohol Frequency: Daily Immunizations Up To Date Influenza Vaccine Up-to-Date: No; Not Current First/Initial COVID19 Vaccinat: DENIES Second COVID19 Vaccination Nolan: DENIES Third COVID19 Vaccination Date: DENIES Seasonal Allergies Seasonal Allergies: No Past Medical History Surgery/Hospitalization HX: HX OF DVT, STOPPED TAKING MEDICATION "A LONG TIME AGO" Surgeries: Yes (Tongue Clipped) Orthopedic, Tonsillectomy Respiratory: Yes (BILATERAL P.E. 2018, right lower extremity arterial occlusion 2022) Pulmonary Embolism Cardiac: No Neurological: No Genitourinary: No Gastrointestinal: No Musculoskeletal: Yes Gout Endocrine: No HEENT: No Cancer: No Psychosocial: Yes (Schizoaffective Disorder) Anxiety, Bipolar, Schizophrenia, Depression Integumentary: No Blood Disorders: No Physical Exam Vital Signs Vital Signs - First Documented 09/23/22 03:50 Temp 37.0 Pulse 88 Resp 16 B/P (MAP) 128/78 (95) Pulse Ox 99 O2 Delivery Room Air Capillary Refill : Less Than 3 Seconds Height, Weight, BMI Height: 5'7.00" Weight: 204lbs. 0oz. 92.252696sw; 23.00 BMI Method:Actual General Appearance: No Apparent Distress, WD/WN HEENT: PERRL/EOMI, Normal ENT Inspection Neck: Normal Inspection Respiratory: Lungs Clear, Normal Breath Sounds, No Accessory Muscle Use Cardiovascular: Regular Rate, Rhythm, No Edema, No Murmur, Other (No dorsal or posterior pedal pulse on the right with palpation or Doppler.) Gastrointestinal: Non Tender; No Distended Extremity: No Pedal Edema, Other (Right foot is cool with sluggish capillary refill and decreased sensation. No dorsal or posterior pedal pulse palpable or heard by doppler on the right foot.) Neurologic/Psychiatric: Alert, Oriented x3, Normal Mood/Affect; No Motor Weakness; Sensory Deficit (right foot) Skin: Normal Color, Warm/Dry Progress/Results/Core Measures Suspected Sepsis SIRS Temperature: Pulse: 88 Respiratory Rate: 16 Laboratory Tests 09/23/22 04:15: White Blood Count 5.9 Blood Pressure 128 /78 Mean: 95 Laboratory Tests 09/23/22 04:15: Creatinine 0.84, INR Comment 1.0, Platelet Count 204, Total Bilirubin 0.5 Results/Orders Lab Results Laboratory Tests Test 09/23/22 04:15 09/23/22 05:35 Range/Units White Blood Count 5.9 4.3-11.0 10^3/uL Red Blood Count 4.56 4.30-5.52 10^6/uL Hemoglobin 13.4 13.3-17.7 g/dL Hematocrit 39 L 40-54 % Mean Corpuscular Volume 84 80-99 fL Mean Corpuscular Hemoglobin 29 25-34 pg Mean Corpuscular Hemoglobin Concent 35 32-36 g/dL Red Cell Distribution Width 14.8 H 10.0-14.5 % Platelet Count 204 130-400 10^3/uL Mean Platelet Volume 9.7 9.0-12.2 fL Immature Granulocyte % (Auto) 0 % Neutrophils (%) (Auto) 59 42-75 % Lymphocytes (%) (Auto) 25 12-44 % Monocytes (%) (Auto) 14 H 0-12 % Eosinophils (%) (Auto) 1 0-10 % Basophils (%) (Auto) 0 0-10 % Neutrophils # (Auto) 3.5 1.8-7.8 10^3/uL Lymphocytes # (Auto) 1.5 1.0-4.0 10^3/uL Monocytes # (Auto) 0.8 0.0-1.0 10^3/uL Eosinophils # (Auto) 0.1 0.0-0.3 10^3/uL Basophils # (Auto) 0.0 0.0-0.1 10^3/uL Immature Granulocyte # (Auto) 0.0 0.0-0.1 10^3/uL Prothrombin Time 13.1 12.2-14.7 SEC INR Comment 1.0 0.8-1.4 Activated Partial Thromboplast Time 33 24-35 SEC Sodium Level 139 135-145 MMOL/L Potassium Level 3.0 L 3.6-5.0 MMOL/L Chloride Level 105 98-107 MMOL/L Carbon Dioxide Level 21 21-32 MMOL/L Anion Gap 13 5-14 MMOL/L Blood Urea Nitrogen 6 L 7-18 MG/DL Creatinine 0.84 0.60-1.30 MG/DL Estimat Glomerular Filtration Rate 117 BUN/Creatinine Ratio 7 Glucose Level 107 H 70-105 MG/DL Calcium Level 9.0 8.5-10.1 MG/DL Corrected Calcium 9.3 8.5-10.1 MG/DL Total Bilirubin 0.5 0.1-1.0 MG/DL Aspartate Amino Transf (AST/SGOT) 15 5-34 U/L Alanine Aminotransferase (ALT/SGPT) 20 0-55 U/L Alkaline Phosphatase 59 40-136 U/L Total Protein 6.8 6.4-8.2 GM/DL Albumin 3.6 3.2-4.5 GM/DL Lipase 19 8-78 U/L Serum Alcohol < 10 <10 MG/DL Urine Color DARK YELLOW Urine Clarity CLEAR Urine pH 7.5 5-9 Urine Specific [place] 1.020 1.016-1.022 Urine Protein 2+ H NEGATIVE Urine Glucose (UA) TRACE H NEGATIVE Urine Ketones 1+ H NEGATIVE Urine Nitrite NEGATIVE NEGATIVE Urine Bilirubin 2+ H NEGATIVE Urine Urobilinogen >=8.0 < = 1.0 MG/DL Urine Leukocyte Esterase NEGATIVE NEGATIVE Urine RBC (Auto) NEGATIVE NEGATIVE Urine RBC RARE /HPF Urine WBC RARE /HPF Urine Crystals NONE /LPF Urine Bacteria NEGATIVE /HPF Urine Casts NONE /LPF Urine Mucus LARGE H /LPF Urine Culture Indicated NO Urine Opiates Screen POSITIVE H NEGATIVE Urine Oxycodone Screen NEGATIVE NEGATIVE Urine Methadone Screen NEGATIVE NEGATIVE Urine Propoxyphene Screen NEGATIVE NEGATIVE Urine Barbiturates Screen NEGATIVE NEGATIVE Ur Tricyclic Antidepressants Screen NEGATIVE NEGATIVE Urine Phencyclidine Screen NEGATIVE NEGATIVE Urine Amphetamines Screen NEGATIVE NEGATIVE Urine Methamphetamines Screen NEGATIVE NEGATIVE Urine Benzodiazepines Screen NEGATIVE NEGATIVE Urine Cocaine Screen NEGATIVE NEGATIVE Urine Cannabinoids Screen POSITIVE H NEGATIVE My Orders Orders - QUAN MACKEY MD Cbc With Automated Diff (09/23/22 04:04) Comprehensive Metabolic Panel (09/23/22 04:04) Protime With Inr (09/23/22 04:04) Partial Thromboplastin Time (09/23/22 04:04) Ed Iv/Invasive Line Start (09/23/22 04:04) Us Right Low Ext [id number] (09/23/22 04:04) Alcohol (09/23/22 04:04) Drug Screen Stat (Urine) (09/23/22 04:04) Lipase (09/23/22 04:04) Ua Culture If Indicated (09/23/22 04:04) Lactated Ringers (Lr 1000 Ml Iv Solution (09/23/22 04:45) Nitroglycerin Ointment (Nitrobid Ointme (09/23/22 04:45) Heparin Drip 12198 Unit/500ml (Heparin (09/23/22 05:00) Heparin (Bolus Per Protocol) (Heparin (B (09/23/22 05:00) Partial Thromboplastin Time (09/23/22 09:15) Medications Given in ED Current Medications Medications Dose Ordered Sig/Swathi Route Start Time Stop Time Status Last Admin Dose Admin Heparin Sodium (Porcine) HEPARIN FULL PROTOC... ONCE ONCE IV 09/23/22 05:00 09/23/22 05:01 DC 09/23/22 05:18 5,000 UNIT Heparin Sodium/ Dextrose 500 ml @ 0 mls/hr Q0M ONCE IV 09/23/22 05:00 09/23/22 05:01 DC 09/23/22 05:18 24 MLS/HR Lactated Ringer's 1,000 ml @ 0 mls/hr Q0M ONCE IV 09/23/22 04:45 09/23/22 04:46 DC 09/23/22 04:51 0 MLS/HR Nitroglycerin 1 inch ONCE ONCE TOP 09/23/22 04:45 09/23/22 04:46 DC 09/23/22 04:50 1 INCH Vital Signs/I&O 09/23/22 03:50 Temp 37.0 Pulse 88 Resp 16 B/P (MAP) 128/78 (95) Pulse Ox 99 O2 Delivery Room Air Capillary Refill : Less Than 3 Seconds Blood Pressure Mean: 95 Progress Note #1: Time: 06:28 Progress Note Arterial US was obtained demonstrating arterial occlusion from the mid RLE and distally per peoplesoft hr developer. Patient was administered a heparin bolus and started on a heparin drip. The process for transfer to a vascular interventional list was initiated. A liter of LR was infused to help support perfusion. Nitro paste was applied to the right foot. Progress Note #2: Time: 06:41 Progress Note I attempted transfer to [facility] as that is where he had the prior thrombectomy performed. Unfortunately, [facility] does not have the staff on-call today to perform a thrombectomy or other vascular interventions to properly treat this patient. I therefore contacted [facility] and spoke with Dr. Treadwell who excepted the patient for interventional cardiology. I am awaiting official acceptance from the hospitalist. Progress Note #3: Time: 07:04 Progress Note [facility] does not have any beds available for admission at this time but is willing to work [facility] in through the emergency room. Transfer to the emergency room was excepted by Dr. Deal at this time. ECG Initial ECG Impression: 3rd Degree AV Block Departure Impression Primary Impression: Occlusion of right femoral artery Disposition: 02 XFER SHT-TRM HOSP Condition: Stable Transfer Transfer Reason: Exceeds level of care Time Spoke to Accepting Phy: 06:30 Transfer Progress Notes Transfer accepted by Dr. Treadwell (interventional cardiology) at [place]. Dr. Deal, ER physician will accept the patient in the ER until bed becomes available. Transfer Facility: [facility] Method of Transfer: EMS Departure-Patient Inst. Referrals: [facility] (PCP/Family) Primary Care Physician QUAN MACKEY MD Sep 23, 2022 05:03
[2022-09-23 06:06] LABS: CLARITY,URINE CLEAR; COLOR,URINE DARK YELLOW; GLUCOSE, URINE (UA) TRACE (NEGATIVE); KETONES,URINE 1+ (NEGATIVE); LEUKOCYTE ESTERASE ,URINE NEGATIVE (NEGATIVE); NITRITE,URINE NEGATIVE (NEGATIVE); PH,URINE 7.5 (5-9); PROTEIN,URINE 2+ (NEGATIVE)
[2022-09-23 06:21] LABS: BACTERIA,URINE NEGATIVE /HPF; BILIRUBIN,URINE 2+ (NEGATIVE); RBC,URINE RARE /HPF; WBC,URINE RARE /HPF
[2022-09-23 06:22] LABS: AMPHETAMINE SCREEN, URINE NEGATIVE (NEGATIVE); BARBITURATE SCREEN URINE NEGATIVE (NEGATIVE); BENZODIAZEPINES SCREEN URINE NEGATIVE (NEGATIVE); CANNABINOID SCREEN, URINE POSITIVE (NEGATIVE); COCAINE SCREEN URINE NEGATIVE (NEGATIVE); METHADONE STAT NEGATIVE (NEGATIVE); OPIATE SCREEN URINE POSITIVE (NEGATIVE); OXYCODONE STAT NEGATIVE (NEGATIVE); PROPOXYPHENE STAT NEGATIVE (NEGATIVE); TRICYCLIC ANTIDEPRESSANTS SCRE NEGATIVE (NEGATIVE)
--- NOTE | 2022-09-23 08:08 | Diagnostic Imaging Report ---
INDICATION: Pulseless right foot. Grayscale, color-flow and duplex Doppler evaluation of the right lower extremity arterial system was performed. There is monophasic flow in the right common femoral artery with velocities of 82 cm/s. The proximal right SFA is monophasic with flow of 71 cm/s. No other flow was identified distal to this region. The right mid and distal SFA as well as the popliteal artery appear to be occluded. No flow in the calf vessels such as the posterior tibial and dorsalis pedis is identified. IMPRESSION: Occlusion of the right lower extremity arterial system commencing at the level of the mid right SFA and extending distally. No definite flow could be identified at the ankle within the dorsalis pedis or posterior tibial artery. Dictated by: Dictated on workstation # [id number]
[2022-09-23 08:31] VITALS: BP 129/75
== END 2022-09-23 08:31 | disposition short-term general hospital (02) ==
LOC: EDUNIT# 03:36 → ER 03:40
DX: I70.201 Unspecified atherosclerosis of native arteries of extremities, right leg (principal); F17.210 Nicotine dependence, cigarettes, uncomplicated; Z98.890 Other specified postprocedural states; Z91.148 Patient's other noncompliance with medication regimen for other reason; Z28.310 Unvaccinated for COVID-19
CPT/HCPCS: 80053; 80306; 81000; 83690; 85025; 85610; 85730; 93926; 99285; G0480; 36415; 80320

== ENCOUNTER 2022-11-04 20:36 | Emergency (ER) | payer SELFPAY ==
[~2022-11-04] VITALS: Ht 172.7 cm; Wt 63.0 kg
[2022-11-04 21:40] LABS: BASOPHILS % (AUTO) 1 % (0-10); EOSINOPHILS % (AUTO) 0 % (0-10); HEMATOCRIT 48 % (40-54); HEMOGLOBIN 15.3 g/dL (13.3-17.7); LYMPHOCYTES % (AUTO) 63 % (12-44); MEAN CORPUSCULAR HEMOGLOBIN 29 pg (25-34); MEAN CORPUSCULAR HGB CONC 32 g/dL (32-36); MEAN CORPUSCULAR VOLUME 89 fL (80-99); MEAN PLATELET VOLUME 9.9 fL (9.0-12.2); MONOCYTES # (AUTO) 0.5 10^3/uL (0.0-1.0); MONOCYTES % (AUTO) 15 % (0-12); NEUTROPHILS # (AUTO) 0.7 10^3/uL (1.8-7.8); NEUTROPHILS % (AUTO) 21 % (42-75); PLATELET COUNT 260 10^3/uL (130-400); WHITE BLOOD COUNT 3.1 10^3/uL (4.3-11.0)
[2022-11-04 21:45] LABS: PROTHROMBIN TIME PATIENT 13.5 SEC (12.2-14.7)
[2022-11-04] MEDS ORDERED: fentaNYL INJECTION 100 MCG/2 ML VIAL IVP ONE (21:45)
[2022-11-04 21:53] LABS: BUN/CREATININE RATIO 6; CALCIUM 8.9 MG/DL (8.5-10.1); CARBON DIOXIDE 21 MMOL/L (21-32); CHLORIDE 103 MMOL/L (98-107); CREATININE SERUM 1.27 MG/DL (0.60-1.30); GFR ESTIMATED 76; GLUCOSE 78 MG/DL (70-105); MAGNESIUM 2.5 MG/DL (1.6-2.4); POTASSIUM 3.3 MMOL/L (3.6-5.0); SODIUM 135 MMOL/L (135-145)
--- NOTE | 2022-11-04 22:05 | Diagnostic Imaging Report ---
PROCEDURE: CT head without contrast. TECHNIQUE: Multiple contiguous axial images were obtained through the brain without the use of intravenous contrast. Auto Exposure Controls were utilized during the CT exam to meet ALARA standards for radiation dose reduction. INDICATION: Headache comparison: None. FINDINGS: The brain parenchyma is normal in attenuation. No intra- or extra-axial mass or fluid collection. No acute hemorrhage. The ventricles are normal in size, shape, and morphology. The kaplan-white matter junction is normal. The subarachnoid cisterns are patent. The visualized paranasal sinuses are normal. The visualized portions of the orbits and globes are normal. The mastoid air cells are clear. The automobile mechanic assistant topogram shows no lytic lesion or fracture. Impression: No acute intracranial process. Dictated by: Dictated on workstation # [id number]
--- NOTE | 2022-11-04 22:09 | ED Headache ---
General Chief Complaint: Head/Cervical Problems Stated Complaint: HEADACHE/HISTORY OF BLOOD CLOTS Nursing Triage Note: pt ambulatory to room with his mother. pt states he has had a headache for 2-3 days. states he has taken OTC pain meds that "slightly took the edge off." pt reports his pain a 9 or 10. pt reports does have a hx of blood clots in his legs and forgot to take his blood thinners for a couple days Source: patient, family, old records Exam Limitations: no limitations History of Present Illness Date Seen by Provider: Nov 04, 2022 Time Seen by Provider: 21:19 Allergies and Home Medications Allergies Coded Allergies: aripiprazole (Verified Allergy, Unknown, 07/30/18) Patient Home Medication List Acetaminophen (Tylenol Extra Strength) 500 Mg Tablet, 1,000 MG PO Q8H PRN for PAIN-MILD (1-4), (Reported) Entered as Reported by: CHELSY FELIZ on 09/20/22 1301 Aspirin (Aspirin EC) 81 Mg Tablet.dr, 81 MG PO DAILY, (Reported) Entered as Reported by: CHELSY FELIZ on 09/20/22 1301 Hydrocodone/Acetaminophen (Hydrocodone-Acetamin 5-325 mg) 5 Mg-325 Mg Tablet, 1 TAB PO Q4H PRN for PAIN-MODERATE (5-7) Prescribed by: QUAN ELIZONDO on 11/04/22 2237 Ondansetron (Ondansetron Odt) 4 Mg Tab.rapdis, 4 MG SL Q4H PRN for NAUSEA/VOMITING Prescribed by: SUSAN HANNON on 09/21/22 1311 Rivaroxaban (Xarelto) 2.5 Mg Tablet, 2.5 MG PO BID, (Reported) Entered as Reported by: CHELSY FELIZ on 09/20/22 1301 Past Cogxojo-Dnfawx-Tzutzd Hx Patient Social History Tobacco Use?: Yes Tobacco type used: Cigarettes Smoking Status: Current Everyday Smoker Use of E-Cig and/or Vaping dev: No Substance use?: No Alcohol Use?: No Immunizations Up To Date Influenza Vaccine Up-to-Date: No; Not Current First/Initial COVID19 Vaccinat: DENIES Second COVID19 Vaccination Nolan: DENIES Third COVID19 Vaccination Date: DENIES Seasonal Allergies Seasonal Allergies: No Past Medical History Surgery/Hospitalization HX: HX OF DVT, STOPPED TAKING MEDICATION "A LONG TIME AGO" Surgeries: Yes (Tongue Clipped) Orthopedic, Tonsillectomy Respiratory: Yes (BILATERAL P.E. 2018, right lower extremity arterial occlusion 2022) Pulmonary Embolism Cardiac: No Neurological: No Genitourinary: No Gastrointestinal: No Musculoskeletal: Yes Gout Endocrine: No HEENT: No Cancer: No Psychosocial: Yes (Schizoaffective Disorder) Anxiety, Bipolar, Schizophrenia, Depression Integumentary: No Blood Disorders: No Physical Exam Vital Signs Vital Signs - First Documented 11/04/22 20:54 Temp 37.1 Pulse 93 Resp 20 B/P (MAP) 111/85 (94) Pulse Ox 99 Capillary Refill : Height, Weight, BMI Height: 5'7.00" Weight: 204lbs. 0oz. 92.797166xh; 21.00 BMI Method:Actual Progress/Results/Core Measures Results/Orders Lab Results Laboratory Tests Test 11/04/22 21:00 11/04/22 21:10 11/04/22 21:29 11/04/22 22:17 Range/Units White Blood Count 3.1 L 4.3-11.0 10^3/uL Red Blood Count 5.33 4.30-5.52 10^6/uL Hemoglobin 15.3 13.3-17.7 g/dL Hematocrit 48 40-54 % Mean Corpuscular Volume 89 80-99 fL Mean Corpuscular Hemoglobin 29 25-34 pg Mean Corpuscular Hemoglobin Concent 32 32-36 g/dL Red Cell Distribution Width 14.9 H 10.0-14.5 % Platelet Count 260 130-400 10^3/uL Mean Platelet Volume 9.9 9.0-12.2 fL Immature Granulocyte % (Auto) 0 % Neutrophils (%) (Auto) 21 L 42-75 % Lymphocytes (%) (Auto) 63 H 12-44 % Monocytes (%) (Auto) 15 H 0-12 % Eosinophils (%) (Auto) 0 0-10 % Basophils (%) (Auto) 1 0-10 % Neutrophils # (Auto) 0.7 L 1.8-7.8 10^3/uL Lymphocytes # (Auto) 2.0 1.0-4.0 10^3/uL Monocytes # (Auto) 0.5 0.0-1.0 10^3/uL Eosinophils # (Auto) 0.0 0.0-0.3 10^3/uL Basophils # (Auto) 0.0 0.0-0.1 10^3/uL Immature Granulocyte # (Auto) 0.0 0.0-0.1 10^3/uL Sodium Level 135 135-145 MMOL/L Potassium Level 3.3 L 3.6-5.0 MMOL/L Chloride Level 103 98-107 MMOL/L Carbon Dioxide Level 21 21-32 MMOL/L Anion Gap 11 5-14 MMOL/L Blood Urea Nitrogen 8 7-18 MG/DL Creatinine 1.27 0.60-1.30 MG/DL Estimat Glomerular Filtration Rate 76 BUN/Creatinine Ratio 6 Glucose Level 78 70-105 MG/DL Calcium Level 8.9 8.5-10.1 MG/DL Magnesium Level 2.5 H 1.6-2.4 MG/DL Serum Alcohol < 10 <10 MG/DL Prothrombin Time 13.5 12.2-14.7 SEC INR Comment 1.0 0.8-1.4 Activated Partial Thromboplast Time 31 24-35 SEC Influenza Type A (RT-PCR) Not Detected Not Detecte Influenza Type B (RT-PCR) Not Detected Not Detecte SARS-CoV-2 RNA (RT-PCR) Detected H Not Detecte My Orders Orders - QUAN MACKEY MD Fentanyl Injection (Fentanyl Injection (11/04/22 21:45) Ct Head Wo (11/04/22 21:32) Alcohol (11/04/22 21:32) Basic Metabolic Panel (11/04/22 21:32) Cbc With Automated Diff (11/04/22 21:32) Drug Screen Stat (Urine) (11/04/22 21:32) Magnesium (11/04/22 21:32) Covid 19 Inhouse Test (11/04/22 21:32) Influenza A And B By Pcr (11/04/22 21:32) Protime With Inr (11/04/22 21:36) Partial Thromboplastin Time (11/04/22 21:36) Lactated Ringers (Lr 1000 Ml Iv Solution (11/04/22 22:15) Hydrocodone/Apap 5/325 Tablet (Hydrocod (11/04/22 22:45) Medications Given in ED Current Medications Medications Dose Ordered Sig/Swathi Route Start Time Stop Time Status Last Admin Dose Admin Fentanyl Citrate 50 mcg ONCE ONCE IVP 11/04/22 21:45 11/04/22 21:46 DC 11/04/22 21:39 50 MCG Lactated Ringer's 1,000 ml @ 0 mls/hr Q0M ONCE IV 11/04/22 22:15 11/04/22 22:16 DC 11/04/22 22:18 999 MLS/HR Vital Signs/I&O 11/04/22 20:54 Temp 37.1 Pulse 93 Resp 20 B/P (MAP) 111/85 (94) Pulse Ox 99 Blood Pressure Mean: 94 Diagnostic Imaging Diagonstic Imaging: CT Plain Films/CT/US/NM/MRI: head Comments NAME: MICHAEL BRAY [facility] REC#: [id number] PT STATUS: REG ER : 1985 PHYSICIAN: QUAN MACKEY MD ADMIT DATE: 11/04/22/ER Signed Date of Exam:11/04/22 CT HEAD WO PROCEDURE: CT head without contrast. TECHNIQUE: Multiple contiguous axial images were obtained through the brain without the use of intravenous contrast. Auto Exposure Controls were utilized during the CT exam to meet ALARA standards for radiation dose reduction. INDICATION: Headache comparison: None. FINDINGS: The brain parenchyma is normal in attenuation. No intra- or extra-axial mass or fluid collection. No acute hemorrhage. The ventricles are normal in size, shape, and morphology. The kaplan-white matter junction is normal. The subarachnoid cisterns are patent. The visualized paranasal sinuses are normal. The visualized portions of the orbits and globes are normal. The mastoid air cells are clear. The damper fitter topogram shows no lytic lesion or fracture. Impression: No acute intracranial process. Dictated by: Dictated on workstation # [id number] Dict: 11/04/222201 Trans: 11/04/222202 [facility] [place] [id number] Interpreted by: HAROON SOLIS DO Electronically signed by: HAROON SOLIS DO 11/04/222202 Departure Impression Primary Impression: COVID-19 virus infection Additional Impressions: Severe headache History of arterial thrombosis Noncompliance with medication regimen Disposition: HOME, SELF-CARE Condition: Improved Departure-Patient Inst. Decision time for Depature: 22:32 Referrals: [facility] (PCP/Family) Primary Care Physician Patient Instructions: COVID-19 ED, Going Home on Blood Thinners Add. Discharge Instructions: Take your Plavix (clopidogrel) and Xarelto immediately upon returning home and strictly adhere to your medication regimen. It is extremely important that you continue these medications exactly as prescribed to prevent further blood clots, especially while you have COVID-19. Drink plenty of clear liquids to stay well-hydrated even if you are not thirst. Try to eat a well balanced diet while you are ill, even if you are not hungry. For mild pain you may take Tylenol (acetaminophen) up to 1000 mg every 6 hours as needed. For more severe pain, you may take hydrocodone as prescribed. Do not take both Tylenol (acetaminophen) and hydrocodone as each hydrocodone tablet contains 325 mg of acetaminophen. Use hydrocodone with caution as it may cause drowsiness. Do not drive, operate machinery, or make important decisions while on hydrocodone. You should quarantine for at least 5 days from your first full day of symptoms and then mask an additional 5 days after that. Remain in quarantine until your major symptoms have resolved. Your close contacts should refer to the CDC guidelines regarding their quarantine and their risk. Return to the emergency room if you have worsening symptoms despite following these instructions. All discharge instructions reviewed with patient and/or family. Voiced understanding. Scripts Hydrocodone/Acetaminophen (Hydrocodone-Acetamin 5-325 mg) 5 Mg-325 Mg Tablet 1 TAB PO Q4H PRN for PAIN-MODERATE (5-7), #8 TAB Prov: QUAN MACKEY MD 11/04/22 Copy Copies To 1: [facility]QU[facility] GREENE MD Nov 04, 2022 22:08
[2022-11-04] MEDS ORDERED: LACTATED RINGERS 1,000 ML IV ONE (22:15)
[2022-11-04] MEDS ORDERED: ACHD5005 PO (22:35)
[2022-11-04 22:41] LABS: AMPHETAMINE SCREEN, URINE POSITIVE (NEGATIVE); BARBITURATE SCREEN URINE NEGATIVE (NEGATIVE); BENZODIAZEPINES SCREEN URINE NEGATIVE (NEGATIVE); CANNABINOID SCREEN, URINE POSITIVE (NEGATIVE); COCAINE SCREEN URINE NEGATIVE (NEGATIVE); METHADONE STAT NEGATIVE (NEGATIVE); OPIATE SCREEN URINE NEGATIVE (NEGATIVE); OXYCODONE STAT NEGATIVE (NEGATIVE); PROPOXYPHENE STAT NEGATIVE (NEGATIVE); TRICYCLIC ANTIDEPRESSANTS SCRE NEGATIVE (NEGATIVE)
[2022-11-04] MEDS ORDERED: HYDROcodone/ACETAMINOPHEN 5 MG/325 MG TABLET PO ONE (22:45)
[2022-11-04 22:55] VITALS: BP 123/97
== END 2022-11-04 22:57 | disposition home or self-care (01) ==
LOC: EDUNIT# 20:36 → ER 20:38
DX: U07.1 COVID-19 (principal); R51.9 Headache, unspecified; Z91.198 Patient's noncompliance with other medical treatment and regimen for other reason; Z86.718 Personal history of other venous thrombosis and embolism; F17.210 Nicotine dependence, cigarettes, uncomplicated; Z28.310 Unvaccinated for COVID-19
CPT/HCPCS: 70450; 80048; 80306; 83735; 85025; 85610; 85730; 87636; 99284; G0480; 36415; 80320